=== PATIENT | female | born 1950 | race Caucasian/White ===

== ENCOUNTER 2018-03-24 21:26 | Inpatient (IN) | payer BC ==
[2018-03-24] MEDS ORDERED: KETOROLAC 30 MG/ML INJ ONE (23:12)
[2018-03-24 23:20] LABS: Absolute Lymphocytes (CBC) 2.1 K/uL (0.7-4.9); Absolute Neutrophil 10.4 K/uL (1.8-8.0); Basophils % 0.5 % (0-1.3); Hematocrit 38.4 % (36.0-45.0); Lymphocytes % 15.5 % (15.3-44.8); MCH 29.8 pg (27.0-35.0); MCV 88.2 fL (80-100); RBC Red Blood Cell Count 4.35 M/uL (3.86-4.86)
[2018-03-24 23:42] LABS: ALT/SGPT 29 U/L (12-78); AST/SGOT 22 U/L (15-37); Albumin 3.6 g/dL (3.4-5.0); Alkaline Phosphatase 100 U/L (45-117); BUN Blood Urea Nitrogen 16 mg/dL (7-18); Bicarbonate 26 mmol/L (21-32); Bilirubin Total 0.5 mg/dL (0.2-1.0); Glucose Level 163 mg/dL (74-106); Potassium 3.7 mmol/L (3.5-5.1); Protein, Total 6.9 g/dL (6.4-8.2); Sodium Level 140 mmol/L (136-145); Troponin (Emerg Dept Use Only) < 0.02 ng/mL (0.0-0.045)
[2018-03-25] MEDS ORDERED: MORPHINE 4 MG/ML SYR ONE (01:31)
[2018-03-25] MEDS ORDERED: ONDANSETRON 4 MG/2 ML VIAL ONE (01:33)
--- NOTE | 2018-03-25 03:25 | EDPHYS ---
Physician Documentation [facility] Name: Janay Boateng Age: 67 yrs Sex: Female : 1950 Arrival Date: 03/24/2018 Time: 21:27 Bed 30 Private MD: ED Physician Claudio Yun HPI: 03/25 00:10 This 67 yrs old Female presents to ER via Ambulatory with complaints of ps1 Shoulder Pain, Abdominal Pain. 00:10 patient fell and now has LUQ abdominal pain and left shoulder pain. Pain rated as ps1 moderate. Worse with movement. No LOC. Not on blood thinners. . Historical: - Allergies: 03/24 22:32 Codeine; rv - Home Meds: 22:32 losartan oral oral [Active]; rv - PMHx: 22:32 Asthma; COPD; Hypertension; rv - PSHx: 22:32 Hysterectomy; Knee surgery; Tonsillectomy; rv - Immunization history:: Adult Immunizations up to date, Flu vaccine is up to date. - Social history:: Smoking status: Patient/guardian denies using tobacco, never smoked. - Ebola Screening: : Patient negative for fever greater than or equal to 101.5 degrees Fahrenheit, and additional compatible Ebola Virus Disease symptoms Patient denies exposure to infectious person Patient denies travel to an Ebola-affected area in the 21 days before illness onset. ROS: 03/25 00:10 Constitutional: Negative for fever, chills, and weight loss, Eyes: Negative for injury, ps1 pain, redness, and discharge, Cardiovascular: Negative for chest pain, palpitations, and edema, Respiratory: Negative for shortness of breath, cough, wheezing, and pleuritic chest pain. Skin: Negative for injury, rash, and discoloration, Neuro: Negative for headache, weakness, numbness, tingling, and seizure. Abdomen/GI: Positive for abdominal pain, of the left upper quadrant. MS/extremity: Positive for pain, tenderness, of the anterior aspect of left upper chest. Exam: 00:17 Constitutional: This is a well developed, well nourished patient who is awake, alert, ps1 and in no acute distress. Head/Face: Normocephalic, atraumatic. Eyes: Pupils equal round and reactive to light, extra-ocular motions intact. Lids and lashes normal. Conjunctiva and sclera are non-icteric and not injected. Chest/axilla: Normal chest wall appearance and motion. Nontender with no deformity. No lesions are appreciated. Cardiovascular: Regular rate and rhythm. No gallops, murmurs, or rubs. Normal PMI, no JVD. No pulse deficits. Respiratory: Lungs have equal breath sounds bilaterally, clear to auscultation and percussion. No rales, rhonchi or wheezes noted. No increased work of breathing, no retractions or nasal flaring. 00:17 Skin: Warm, dry with normal turgor. Normal color with no rashes, no lesions, and no evidence of cellulitis. MS/ Extremity: Pulses equal, no cyanosis. Neurovascular intact. Full, normal range of motion. Neuro: Awake and alert, GCS 15, oriented to person, place, time, and situation. Cranial nerves II-XII grossly intact. Sensory grossly intact. 00:17 Abdomen/GI: Inspection: abdomen appears normal, Bowel sounds: normal, Palpation: mild abdominal tenderness, in the left upper quadrant. Vital Signs: 03/24 22:32 BP 115 / 36; Pulse 111; Resp 18; Temp 98.2(O); Pulse Ox 100% on R/A; Weight 101.6 kg rv (R); 03/25 01:39 BP 110 / 54; Pulse 93; Resp 19; Pulse Ox 96% on R/A; rv 02:30 BP 117 / 67; Pulse 97; Resp 17; Pulse Ox 98% on R/A; rv MDM: 03/24 22:53 Patient medically screened. ps1 03/25 00:18 Data reviewed: vital signs, nurses notes, lab test result(s), EKG, radiologic studies, ps1 CT scan, possible splenic laceration on CT thorax, will get CTAB with contrast for further evaluation. 03/24 22:50 Order name: CBC with Diff; Complete Time: 23:24 ps1 03/24 22:50 Order name: CMP; Complete Time: 23:50 ps1 03/24 22:50 Order name: Troponin (emerg Dept Use Only); Complete Time: 23:50 ps1 03/24 22:50 Order name: UA ps1 03/25 03:00 Order name: Hemoglobin EDMS 03/25 03:00 Order name: Hemoglobin EDMS 03/24 22:50 Order name: CT Chest Wo Con ps1 03/25 00:06 Order name: CT Abd/Pelvis - W/Contrast ps1 03/25 03:00 Order name: Hemoglobin EDMS 03/25 03:00 Order name: Hemoglobin EDMS 03/25 03:00 Order name: Hemoglobin EDMS 03/25 03:00 Order name: CONS Pharmacy Consult EDMS 03/25 03:00 Order name: NPO EDMS Administered Medications: 03/24 23:14 Drug: TORadol 30 mg Route: IVP; Site: right antecubital; rv 03/25 01:49 Follow up: Response: Pain is unchanged, physician notified rv 01:30 Drug: Zofran 4 mg Route: IVP; Site: right antecubital; rv 03:03 Follow up: Response: No adverse reaction rv 01:49 Drug: morphine 4 mg Route: IVP; Site: right antecubital; rv 03:03 Follow up: Response: Pain is decreased rv Disposition: 03/25/18 03:23 Hospitalization ordered by Adolfo Dillon for Inpatient Admission. Preliminary diagnosis are Subcapsular Hematoma, Splenic laceration, Abdominal pain. - Bed requested for Intensive Care Unit. - Status is Inpatient Admission. fc - Condition is Fair. - Problem is new. - Symptoms are unchanged. UTI on Admission? No Signatures: Dispatcher [employer] EDNE Jessica Watson RN RN Claudio Yun MD MD [facility] Les Diane RN RN rv Corrections: (The following items were deleted from the chart) 03:24 03:23 Hospitalization Ordered by Adolfo Dillon MD for Inpatient Admission. Preliminary fc diagnosis is Subcapsular Hematoma; Splenic laceration; Abdominal pain. Bed requested for Intensive Care Unit. Status is Inpatient Admission. Condition is Fair. Problem is new. Symptoms are unchanged. UTI on Admission? No. ps1 04:22 03:24 03/25/2018 03:23 Hospitalization Ordered by Adolfo Dillon MD for Inpatient fc Admission. Preliminary diagnosis is Subcapsular Hematoma; Splenic laceration; Abdominal pain. Bed requested for Intensive Care Unit. Status is Inpatient Admission. Condition is Fair. Problem is new. Symptoms are unchanged. UTI on Admission? No. fc
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
[2018-03-25 04:38] VITALS: BMI 36.6
[2018-03-25] MEDS: ONDANSETRON 4 MG/2 ML VIAL IV PRN ×2 (06:10→13:22)
[2018-03-25] MEDS: MORPHINE 4 MG/ML SYR IV PRN (06:11)
--- NOTE | 2018-03-25 07:21 | EKG ---
Test Date: 2018-03-24 Test Time: 22:47:02 Flowers Salesperson: MEASUREMENT RESULTS: Intervals: Rate: 91 DC: 152 QRSD: 72 QT: 398 QTc: 489 [place]: P: 74 DC: 152 QRS: 48 T: 63 INTERPRETIVE STATEMENTS: Sinus rhythm with frequent premature ventricular complexes Otherwise normal ECG Compared to ECG 03/27/2016 13:01:14 Ventricular premature complex(es) now present Electronically Signed On 03-25-18 07:20:34 PIGMENT FURNACE TENDER by Aj Olivera
[2018-03-25 07:56] LABS: Urine Appearance CLEAR; Urine Bilirubin NEGATIVE (NEG); Urine Blood NEGATIVE (NEG); Urine Color YELLOW; Urine Glucose NEGATIVE (NEG); Urine Protein NEGATIVE (NEG); Urine Specific Gravity >=1.030 (1.005-1.030); Urine Urobilinogen 0.2 mg/dL (0.2-1.0)
[2018-03-25 07:58] LABS: Urine Microscopic Reflex NO UMIC
--- NOTE | 2018-03-25 08:28 | RAD REPORT ---
EXAM DESCRIPTION: CT - Thorax Wo Con - 03/25/2018 4:38 am CLINICAL HISTORY: Fall, left-sided chest trauma A preliminary report was provided at the time of the study and reviewed prior to final report. COMPARISON: CT chest March 2016 TECHNIQUE: Axial 5 mm thick images of the chest were obtained without IV contrast. All CT scans are performed using dose optimization technique as appropriate and may include automated exposure control or mA/KV adjustment according to patient size. FINDINGS: No pulmonary contusion or acute lung parenchymal process. No pleural thickening or pleural effusion. No pneumothorax. No abnormal mediastinal or hilar masses or lymphadenopathy seen. No gross aortic or pulmonary artery finding suspected. Assessment is limited in the absence of IV contrast. No cardiomegaly or pericardi al effusion. No chest wall mass or abnormal axillary lymphadenopathy. Sternum is intact. No displaced rib fracture is identifiable. No significant contusion or edema change in the soft tissues. Partially imaged spleen is abnormal. There is heterogeneous attenuation suspicious for subcapsular he morrhage. No free fluid in the left upper quadrant. There is free fluid adjacent to the partially matilde ged liver. No gross evidence for laceration or capsule disruption of the liver. Abdomen is only parti ally imaged. IMPRESSION: Suspected subcapsular hemorrhage in the spleen. Follow-up contrast CT imaging would be h elpful. Small amount of fluid adjacent to the liver without gross evidence for liver injury. Again, contrast CT imaging would be helpful. No pulmonary contusion or acute lung parenchymal process. No displaced rib fracture or significant bony injury.
--- NOTE | 2018-03-25 08:28 | RAD REPORT ---
EXAM DESCRIPTION: CT - Abdomen Pelvis W Contrast - 03/25/2018 4:38 am CLINICAL HISTORY: Chest pain, abdominal pain, history of fall, history of abnormal spleen on CT ches t imaging A preliminary report was provided at the time of the study and reviewed prior to final report. COMPARISON: CT chest March 24 TECHNIQUE: Biphasic, helical CT imaging of the abdomen and pelvis was performed following 100 ml non -ionic IV contrast. No oral contrast All CT scans are performed using dose optimization technique as appropriate and may include automated exposure control or mA/KV adjustment according to patient size. FINDINGS: No suspicious findings in the lung bases. Liver size is normal. No liver laceration or capsular defect confirmed. Along the superior and right lateral margin of the liver there is fluid present within attenuation value of 30-40 Hounsfield units . No suspicious lesion within the liver parenchyma. Spleen is grossly abnormal. Small sub centimeter length lacerations are seen along the anterior super ior spleen. Circumferential subcapsular hemorrhages present up to 2.8 cm in thickness. Gallbladder, pancreas, adrenal glands and kidneys show no acute findings. Renal function is normal an d symmetric. Gallstones can be occult on CT imaging. No biliary tree dilatation. No dilated bowel loops or bowel wall thickening. No free air or pneumatosis. Minimal amount of fluid or blood is seen in the dependent portion of the pelvis. No hernia, mass or bulky lymphadenopathy. Uterus and ovaries show no suspicious findings. No adrenal abnormality. Disc and bony degenerative changes are present. No compression fracture. IMPRESSION: Grade 3 splenic injury with circumferential subcapsular hemorrhage up to 2.8 cm in thick ness. Small lacerations are seen anterior superior margin. Pericapsular or minimal subcapsular hemorrhage along the lateral and superior aspect of the liver. No liver laceration or capsule disruption identifiable. Small quantity of fluid/blood along the right pericolic gutter and dependent portion of the pelvis. No contrast extravasation seen to indicate active hemorrhage.
[2018-03-25] MEDS: ACETAMINOPHEN 500 MG TAB PO PRN ×2 (12:24→21:30)
[2018-03-26] MEDS: ONDANSETRON 4 MG/2 ML VIAL IV PRN (09:25)
[2018-03-26] MEDS: MORPHINE 4 MG/ML SYR IV PRN ×3 (09:42→22:26)
[2018-03-26] MEDS: ACETAMINOPHEN 500 MG TAB PO PRN (17:56)
[2018-03-26] MEDS ORDERED: MAGNESIUM HYDROXIDE 8% 30 ML PO ONE (19:35)
[2018-03-26] MEDS ORDERED: ZOLPIDEM TARTRATE 10 MG TABLET PO PRN ×2 (22:33→22:47)
[2018-03-27 06:35] LABS: Hematocrit 35.9 % (36.0-45.0)
[2018-03-27] MEDS: ONDANSETRON 4 MG/2 ML VIAL IV PRN ×2 (12:22→20:42)
[2018-03-27] MEDS: MORPHINE 4 MG/ML SYR IV PRN (12:22)
[2018-03-27] MEDS: ACETAMINOPHEN 500 MG TAB PO PRN (13:42)
[2018-03-27] MEDS: MORPHINE 2 MG/ML SYR IV PRN (20:42)
[2018-03-28] MEDS: TRAMADOL HCL 50 MG TAB PO PRN ×2 (04:52→21:17)
[2018-03-28 06:30] LABS: Absolute Lymphocytes (CBC) 1.1 K/uL (0.7-4.9); Absolute Monocytes 1.4 K/uL (0.1-1.3); Absolute Neutrophil 9.5 K/uL (1.8-8.0); Basophils % 0.6 % (0-1.3); Eosinophils % 1.2 % (0-4.4); Hematocrit 34.5 % (36.0-45.0); MCH 29.9 pg (27.0-35.0); MCV 89.5 fL (80-100); MPV 8.5 fL (7.6-11.3); Monocytes % 11.5 % (3.3-12.3); RBC Red Blood Cell Count 3.85 M/uL (3.86-4.86)
[2018-03-28 06:59] LABS: Albumin 2.7 g/dL (3.4-5.0); Bilirubin Direct 0.2 mg/dL (0-0.2); Bilirubin Total 0.5 mg/dL (0.2-1.0); Potassium 3.7 mmol/L (3.5-5.1); Protein, Total 6.4 g/dL (6.4-8.2)
[2018-03-28] MEDS: ONDANSETRON 4 MG/2 ML VIAL IV PRN ×2 (12:15→21:17)
[2018-03-28] MEDS: MORPHINE 2 MG/ML SYR IV PRN (12:16)
[2018-03-28] MEDS: ACETAMINOPHEN 500 MG TAB PO PRN (15:14)
[2018-03-29] MEDS: ACETAMINOPHEN 500 MG TAB PO PRN ×2 (10:28→20:54)
[2018-03-29] MEDS: TRAMADOL HCL 50 MG TAB PO PRN (10:28)
[2018-03-29] MEDS: ONDANSETRON 4 MG/2 ML VIAL IV PRN (12:38)
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
[2018-03-29] MEDS ORDERED: MAGNESIUM HYDROXIDE 8% 30 ML PO ONE (21:00)
[2018-03-30 04:46] VITALS: O2SAT 99
[2018-03-30] MEDS: ACETAMINOPHEN 500 MG TAB PO PRN (10:10)
[2018-03-30] MEDS: TRAMADOL HCL 50 MG TAB PO PRN (10:10)
[2018-03-30 12:57] VITALS: BP 143/78; TEMP 98.4
--- NOTE | 2018-03-30 13:18 | P.PN ---
Date of Service: 03/30/18 S: Patient has some lower abdominal soreness earlier when she tried to bend over. Appears to have gone away now. Up ambulating, tolerating a diet, has been afebrile. O: Abdomen remains soft, no guarding or rebound A: Surgically stable P: I will discharge the patient home today. We have discussed diet, continue use of incentive spirometry, and in fact that she has to walk and ambulate. She is at risk for clots in the legs, and we have discussed this in view of her aspirin use. She will see me on Thursday. She knows if anything changes or she has any questions or problems she is to return to the emergency room immediately.
--- NOTE | 2018-03-30 13:25 | P.DS ---
Admission Date: 03/25/18 Discharge Date: 03/30/18 Disposition: ROUTINE DISCHARGE Discharge Condition: GOOD Reason for Admission: Ruptured spleen Brief History of Present Illness: This 67-year-old female sustained a fall. She was at home when later on she started to eat. Experiencing fixed was at left upper quadrant abdominal pain, radiating into her left shoulder, and across the upper portion of her abdomen. She went to the emergency room for evaluation and treatment. Hospital Course: This patient was found have a ruptured spleen. She was stable with a stable H&H and vital signs. She was admitted for observation and pain control as well. Over the course of the next few days, her hemoglobin hematocrit remained stable. She was able to get up and ambulate. She was tolerating a diet. Her discomfort was controlled on oral medications and she was deemed fit for discharge. On discharge she has been advised to take stool softeners. Avoid any heavy lifting or bending. We will see her Thursday in my office. Should she have any questions or any problems she is to go or have herself brought to the emergency room. She understands. Vital Signs/Physical Exam: Temp Pulse Resp BP Pulse Ox 98.4 F 90 18 143/78 H 95 03/30/18 12:00 03/30/18 12:00 03/30/18 12:00 03/30/18 12:00 03/30/18 12:00 Laboratory Data at Discharge: WBC 12.2 K/uL (4.3-10.9) H 03/28/18 06:09 Hgb 11.5 g/dL (12.0-15.0) L 03/28/18 06:09 Hct 34.5 % (36.0-45.0) L 03/28/18 06:09 Plt Count 254 K/uL (152-406) 03/28/18 06:09 Sodium 136 mmol/L (136-145) 03/28/18 06:09 Potassium 3.7 mmol/L (3.5-5.1) 03/28/18 06:09 BUN 12 mg/dL (7-18) 03/28/18 06:09 Creatinine 0.90 mg/dL (0.55-1.3) 03/28/18 06:09 Glucose 113 mg/dL (74-106) H 03/28/18 06:09 Total Bilirubin 0.5 mg/dL (0.2-1.0) 03/28/18 06:09 AST 11 U/L (15-37) L 03/28/18 06:09 ALT 16 U/L (12-78) 03/28/18 06:09 Alkaline Phosphatase 83 U/L (45-117) 03/28/18 06:09 Home Medications: Albuterol Sulfate [Albuterol Sulfate 0.083% Neb Soln] 2.5 mg IH TID PRN Zolpidem Tartrate [Ambien Cr] 12.5 mg PO BEDTIME 03/28/16 Budesonide/Formoterol Fumarate [Symbicort 160-4.5 Mcg Inhaler] 2 puff IH BID #1 hfa.aer.ad 03/30/16 Pantoprazole [Protonix Tab*] 40 mg PO DAILYAC #30 tab 03/30/16 Tiotropium [place] [Spiriva Respimat] 4 gm IH DAILY #1 mist.inhal 03/30/16 Aspirin [Aspirin EC 81 MG] 1 tab PO DAILY 03/25/18 Cetirizine HCl [Zyrtec] 10 mg PO DAILY 03/25/18 Losartan/Hydrochlorothiazide [Losartan-Hctz 50-12.5 mg Tab] 1 each PO DAILY Montelukast Sodium 10 mg PO BEDTIME 03/25/18 Followup: Adolfo Dillon MD [ACTIVE - CAN ADMIT] - 04/05/18 (call to schedule appointment)
== END 2018-03-30 15:00 | disposition home or self-care (01) | DRG 816 ==
LOC: ER 21:26 → ERHOLD 03-25 02:55 → 3RD-ICU 03-25 03:26 → 4TH 03-25 18:00
PROVIDERS: ADMIT Surgery; ATTEND Surgery
DX: S36.09XA Other injury of spleen, initial encounter (principal); W10.1XXA Fall (on)(from) sidewalk curb, initial encounter; Y93.01 Activity, walking, marching and hiking; Y92.89 Other specified places as the place of occurrence of the external cause; J44.9 Chronic obstructive pulmonary disease, unspecified; I10 Essential (primary) hypertension
CPT/HCPCS: 36415; 71250; 74177; 80048; 80053; 80076; 81003; 84484; 85014; 85018; 85025; 93005; 96374; 96375; 99285; J2270; J2405; Q9967

== ENCOUNTER 2018-04-07 12:30 | Observation (INO) | payer BC ==
[2018-04-07] MEDS ORDERED: MEPERIDINE HCL 25 MG/0.5 ML ONE ×2 (13:41→16:03)
[2018-04-07] MEDS ORDERED: ONDANSETRON 4 MG/2 ML VIAL ONE (13:41)
[2018-04-07 13:54] LABS: Absolute Lymphocytes (CBC) 1.3 K/uL (0.7-4.9); Absolute Monocytes 1.1 K/uL (0.1-1.3); Absolute Neutrophil 9.3 K/uL (1.8-8.0); Basophils % 0.7 % (0-1.3); Eosinophils % 2.3 % (0-4.4); Hematocrit 39.7 % (36.0-45.0); Lymphocytes % 10.5 % (15.3-44.8); MCH 29.2 pg (27.0-35.0); MCV 87.5 fL (80-100); Monocytes % 9.4 % (3.3-12.3); RBC Red Blood Cell Count 4.54 M/uL (3.86-4.86)
[2018-04-07 13:58] LABS: Protime INR 1.27
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
[2018-04-07 14:09] LABS: Albumin 3.1 g/dL (3.4-5.0); Bilirubin Direct 0.1 mg/dL (0-0.2); Bilirubin Total 0.3 mg/dL (0.2-1.0); Potassium 3.7 mmol/L (3.5-5.1); Protein, Total 7.8 g/dL (6.4-8.2)
--- NOTE | 2018-04-07 14:39 | RAD REPORT ---
EXAM DESCRIPTION: CT - Chest Abdomen Pelvis W Cont - 04/07/2018 2:28 pm CLINICAL HISTORY: Chest and abdomen pain. ruptured spleen 3 weeks ago, worsening abd/chest pain COMPARISON: Abdomen Pelvis W Contrast dated 03/25/2018 TECHNIQUE: Approximately 100 mL nonionic IV contrast was administered to the patient. All CT scans are performed using dose optimization technique as appropriate and may include automated exposure control or mA/KV adjustment according to patient size. FINDINGS: Subsegmental atelectasis is present in the left lung base.A moderate left pleural effusion is noted.The right lung appears clear.No intrathoracic adenopathy.A rib fracture is not seen. Subcapsular fluid collections are seen surrounding the spleen laterally measuring 3.8 cm in thickness and medially measuring 1.6 cm in thickness. Most likely these represent liquefying hematoma related to previous splenic injury. Overall, size of the spleen with subcapsular fluid collections appears si milar to the prior study. Small amount of fluid which was about the right hepatic edge and in the pel vis has reduced in quantity. The liver, pancreas, adrenal glands and kidneys are within normal limits. No bowel obstruction, free air, or abscess. Normal appendix. No pathologic lymphadenopathy in the ab domen or pelvis. Lumbar degenerative changes are present. IMPRESSION: Moderate left pleural effusion. Subcapsular splenic fluid collections likely represent liquefying hematomas from prior splenic trauma . No acute process related to this finding is seen.
[2018-04-07 14:59] LABS: Urine White Blood Cell Casts OK
[2018-04-07 15:00] LABS: Blood Morphology Comment NOT SEEN (NOT SEEN); Hypochromasia 1+; Platelet Estimate INCR; Polychromasia 1+
--- NOTE | 2018-04-07 15:39 | EDPHYS ---
Physician Documentation [facility] Name: Janay Boateng Age: 67 yrs Sex: Female : 1950 Arrival Date: 04/07/2018 Time: 12:33 Bed 23 Private MD: Timmy Jean ED Physician Eric Trivedi HPI: 04/07 13:23 This 67 yrs old Female presents to ER via Wheelchair with complaints of rn Abdominal Pain. 13:23 The patient presents with abdominal pain in the left upper quadrant. Onset: The rn symptoms/episode began/occurred this morning. The symptoms do not radiate. Associated signs and symptoms: Pertinent negatives: nausea and vomiting, diarrhea, dysuria, fever, vomiting blood. Modifying factors: The symptoms are alleviated by nothing, the symptoms are aggravated by coughing, breathing deeply, movement, touching the area. Severity of pain: At its worst the pain was moderate in the emergency department the pain is unchanged. The patient has experienced similar episodes in the past. The patient has been recently seen by a physician: The patient has been recently been admitted at [facility]. Reports had splenic injury after fall 3 weeks ago, admitted to ICU here by Dr. Dillon, seen just yesterday at his clinic, was doing ok, this morning woke up with moderate LUQ abd pain and rib pain, no fever, no cough, + pain with movement/touch/deep breath. Historical: - Allergies: 13:01 Codeine; aa5 17:52 mushroom; tl3 - Home Meds: 17:52 losartan Oral [Active]; pantoprazole oral oral [Active]; cetirizine oral oral [Active]; tl3 Albuterol Inhl [Active]; budesonide inhalation inhalation [Active]; montelukast oral oral [Active]; Zolpidem Tartrate Oral [Active]; Hydralazine Oral [Active]; tiotropium bromide inhalation inhalation [Active]; Tramadol Oral [Active]; benzonatate oral oral [Active]; - PMHx: 13:01 Asthma; COPD; Hypertension; aa5 - PSHx: 13:01 Hysterectomy; Knee surgery; Tonsillectomy; aa5 - Immunization history:: Adult Immunizations unknown. - Social history:: Smoking status: Patient/guardian denies using tobacco. - Ebola Screening: : No symptoms or risks identified at this time. - Family history:: not pertinent. - Hospitalizations: : The patient was recently seen at [facility]. ROS: 13:23 Constitutional: Negative for fever, chills, and weight loss, Eyes: Negative for injury, rn pain, redness, and discharge, Cardiovascular: Negative for palpitations, and edema, Respiratory: Negative for cough, wheezing Abdomen/GI: + abd pain Back: Negative for injury and pain, MS/Extremity: Negative for injury and deformity, Skin: Negative for injury, rash, and discoloration, Neuro: Negative for headache, weakness, numbness, tingling, and seizure. Exam: 13:23 Constitutional: This is a well developed, well nourished patient who is awake, alert, rn appears uncomfortable Head/Face: Normocephalic, atraumatic. Eyes: Pupils equal round and reactive to light, extra-ocular motions intact. Cardiovascular: Regular rate and rhythm with a normal S1 and S2. No pulse deficits. Respiratory: Diminished breath sounds left lung base, no crepitus, no ecchymosis Abdomen/GI: soft, + tender LUQ without ecchymosis MS/ Extremity: Pulses equal, no cyanosis. Neurovascular intact. Full, normal range of motion. Equal circumference. Neuro: Awake and alert, GCS 15, oriented to person, place, time, and situation. Cranial nerves II-XII grossly intact. Motor strength 5/5 in all extremities. Sensory grossly intact. Vital Signs: 13:01 BP 131 / 78; Pulse 89; Resp 16 S; Temp 98.3(TE); Pulse Ox 98% on R/A; Weight 102.06 kg aa5 (R); Height 5 ft. 5 in. (165.10 cm) (R); Pain 10/10; 14:15 BP 124 / 88; Pulse 90; Resp 18; Pulse Ox 97% ; tl3 15:58 BP 128 / 83; Pulse 89; Resp 18; Pulse Ox 99% ; tl3 13:01 Body Mass Index 37.44 (102.06 kg, 165.10 cm) aa5 MDM: 13:06 Patient medically screened. rn 15:18 Differential diagnosis: bowel obstruction, non-specific abd pain, pneumonia, pleurisy, rn atelectasis, pleural effusion. Data reviewed: vital signs, nurses notes, lab test result(s), radiologic studies, CT scan, plain films, and as a result, I will admit patient. Counseling: I had a detailed discussion with the patient and/or guardian regarding: the historical points, exam findings, and any diagnostic results supporting the discharge/admit diagnosis, lab results, radiology results, the need for further work-up and treatment in the hospital. Admission orders: after a detailed discussion of the patient's condition and case, the admit orders are written by me. ED course: Pt evaluated by Dr. Dillon here in ER< recommends admission to medicine with consult to him, improvement of splenic injury, but new pleural effusion. . 04/07 13:18 Order name: Basic Metabolic Panel; Complete Time: 14:39 rn 04/07 13:18 Order name: CBC with Diff; Complete Time: 15:21 rn 04/07 13:18 Order name: Creatinine for Radiology; Complete Time: 14:13 rn 04/07 13:18 Order name: Hepatic Function; Complete Time: 14:39 rn 04/07 13:18 Order name: Lipase; Complete Time: 14:39 rn 04/07 13:18 Order name: Type And Screen; Complete Time: 15:21 rn 04/07 13:18 Order name: CT Chest, Abdomen, Pelvis - W/Contrast; Complete Time: 14:43 rn 04/07 13:18 Order name: XRAY Chest (1 view); Complete Time: 14:13 rn 12 13:19 Order name: PT-INR; Complete Time: 14:39 rn 04/07 13:19 Order name: Ptt, Activated; Complete Time: 14:39 rn 04/07 14:26 Order name: CBC Smear Scan; Complete Time: 15:21 EDWA 04/07 15:10 Order name: ABO/RH no charge; Complete Time: 15:21 EDWA 04/07 13:18 Order name: IV Saline Lock; Complete Time: 13:26 rn 04/07 13:18 Order name: Labs collected and sent; Complete Time: 13:26 rn 04/07 13:19 Order name: EKG; Complete Time: 13:19 rn 04/07 13:19 Order name: EKG - Nurse/Tech; Complete Time: 13:37 rn Administered Medications: 13:37 Drug: Zofran 4 mg Route: IVP; Infused Over: 2 mins; Site: right antecubital; tl3 14:35 Follow up: Response: No adverse reaction tl3 13:37 Drug: Demerol 25 mg Route: IVP; Infused Over: 2 mins; Site: right antecubital; tl3 14:35 Follow up: Response: No adverse reaction; Marked relief of symptoms; Pain is decreased tl3 15:58 Drug: Demerol 25 mg Route: IVP; Infused Over: 2 mins; Site: right antecubital; tl3 17:56 Follow up: Response: No adverse reaction tl3 Disposition: 04/07/18 15:38 Hospitalization ordered by Jaren Shields for Observation. Preliminary diagnosis are Pleural effusion, not elsewhere classified, Splenic Hematoma. - Bed requested for Telemetry/MedSurg (observation). - Status is Observation. tl3 - Condition is Stable. - Problem is new. - Symptoms have improved. UTI on Admission? No Signatures: Dispatcher [employer] EDMS Eric Trivedi MD MD rn Calderon, Audri, RN RN aa5 Yosvany Chaparro PA PA 8 Barb Godfrey RN RN df Maria Luz Apodaca RN RN tl3 Corrections: (The following items were deleted from the chart) 16:25 15:38 Hospitalization Ordered by Jaren Shields DO for Inpatient Admission. Preliminary rn diagnosis is Pleural effusion, not elsewhere classified; Splenic Hematoma. Bed requested for Telemetry/MedSurg (Inpatient). Status is Inpatient Admission. Condition is Stable. Problem is new. Symptoms have improved. UTI on Admission? No. rn 16:38 16:25 04/07/2018 15:38 Hospitalization Ordered by Jaren Shields DO for Observation. df Preliminary diagnosis is Pleural effusion, not elsewhere classified; Splenic Hematoma. Bed requested for Telemetry/MedSurg (observation). Status is Observation. Condition is Stable. Problem is new. Symptoms have improved. UTI on Admission? No. rn 18:47 16:38 04/07/2018 15:38 Hospitalization Ordered by Jaren Shields DO for Observation. tl3 Preliminary diagnosis is Pleural effusion, not elsewhere classified; Splenic Hematoma. Bed requested for Telemetry/MedSurg (observation). Status is Observation. Condition is Stable. Problem is new. Symptoms have improved. UTI on Admission? No. df
--- NOTE | 2018-04-07 15:39 | ER ---
Nurse's Notes [facility] Name: Janay Boateng Age: 67 yrs Sex: Female : 1950 Arrival Date: 04/07/2018 Time: 12:33 Bed 23 Private MD: Timmy Jean Diagnosis: Pleural effusion, not elsewhere classified;Splenic Hematoma Presentation: 04/07 12:59 Presenting complaint: Patient states: "I fell and ruptured my spleen and had some liver aa5 issues as well and since yesterday the abdominal pain has gotten worse and Dr. West recommended for me to come in and be reevaluated". Pt denies vomiting. Transition of care: patient was not received from another setting of care. Onset of symptoms was March 2018. Risk Assessment: Do you want to hurt yourself or someone else? Patient reports no desire to harm self or others. Initial Sepsis Screen: Does the patient meet any 2 criteria? No. Patient's initial sepsis screen is negative. Does the patient have a suspected source of infection? No. Patient's initial sepsis screen is negative. Care prior to arrival: None. 12:59 Method Of Arrival: Wheelchair aa5 12:59 Acuity: JAYESH 3 aa5 Historical: - Allergies: 13:01 Codeine; aa5 17:52 mushroom; tl3 - Home Meds: 17:52 losartan Oral [Active]; pantoprazole oral oral [Active]; cetirizine oral oral [Active]; tl3 Albuterol Inhl [Active]; budesonide inhalation inhalation [Active]; montelukast oral oral [Active]; Zolpidem Tartrate Oral [Active]; Hydralazine Oral [Active]; tiotropium bromide inhalation inhalation [Active]; Tramadol Oral [Active]; benzonatate oral oral [Active]; - PMHx: 13:01 Asthma; COPD; Hypertension; aa5 - PSHx: 13:01 Hysterectomy; Knee surgery; Tonsillectomy; aa5 - Immunization history:: Adult Immunizations unknown. - Social history:: Smoking status: Patient/guardian denies using tobacco. - Ebola Screening: : No symptoms or risks identified at this time. - Family history:: not pertinent. - Hospitalizations: : The patient was recently seen at [facility]. Screenin:10 Abuse screen: Denies threats or abuse. Nutritional screening: No deficits noted. tl3 Tuberculosis screening: No symptoms or risk factors identified. Fall Risk None identified. Assessment: 13:10 General: Appears uncomfortable, well groomed, well developed, well nourished, Behavior tl3 is calm, cooperative, appropriate for age. Pain: Complains of pain in left upper quadrant Pain currently is 10 out of 10 on a pain scale. Pain began started yesterday, had recent splenic injury 3 weeks ago from fall, was in ICU for 2 days. Neuro: Level of Consciousness is awake, alert, obeys commands, Oriented to person, place, time, situation, Appropriate for age. Cardiovascular: Heart tones S1 S2 present Patient's skin is warm and dry. Respiratory: Airway is patent Respiratory effort is even, unlabored, Respiratory pattern is regular, symmetrical, Breath sounds are clear bilaterally. GI: Bowel sounds present X 4 quads. Abd is soft Abdomen is tender to palpation in left upper quadrant. : No deficits noted. No signs and/or symptoms were reported regarding the genitourinary system. EENT: No deficits noted. No signs and/or symptoms were reported regarding the EENT system. Derm: No deficits noted. No signs and/or symptoms reported regarding the dermatologic system. Musculoskeletal: No deficits noted. No signs and/or symptoms reported regarding the musculoskeletal system. 14:15 Reassessment: pt states that she is feeling a bit better after pain meds. tl3 14:15 Reassessment: pt returned from CT. tl3 15:58 Reassessment: No changes from previously documented assessment. Patient and/or family tl3 updated on plan of care and expected duration. Pain level reassessed. Patient is alert, oriented x 3, equal unlabored respirations, skin warm/dry/pink. hospitalist at bedside discussing plan to admit. Vital Signs: 13:01 BP 131 / 78; Pulse 89; Resp 16 S; Temp 98.3(TE); Pulse Ox 98% on R/A; Weight 102.06 kg aa5 (R); Height 5 ft. 5 in. (165.10 cm) (R); Pain 10/10; 14:15 BP 124 / 88; Pulse 90; Resp 18; Pulse Ox 97% ; tl3 15:58 BP 128 / 83; Pulse 89; Resp 18; Pulse Ox 99% ; tl3 13:01 Body Mass Index 37.44 (102.06 kg, 165.10 cm) aa5 ED Course: 12:33 Patient arrived in ED. mr 12:33 Timmy Jean MD is Private Physician. mr 12:59 Arm band placed on. aa5 13:00 Triage completed. aa5 13:06 Eric Trivedi MD is Attending Physician. rn 13:10 Maria Luz Apodaca, GABE is Primary Nurse. tl3 13:10 ED physician to see patient. Dr Trivedi. tl3 13:10 Patient has correct armband on for positive identification. Bed in low position. Call tl3 light in reach. Side rails up X 1. Adult w/ patient. playground monitor on. Pulse ox on. Warm blanket given. 13:10 No provider procedures requiring assistance completed. tl3 13:26 Initial lab(s) drawn, by me, sent to lab. X-ray(s) taken. Inserted saline lock: 20 tl3 gauge in right antecubital area, using aseptic technique. Blood collected. 13:30 Radiology exam delayed due to lab results not completed at this time. (BUN/Creatinine). vr 13:43 XRAY Chest (1 view) In Process Unspecified. EDMS 13:43 X-ray completed. Portable x-ray completed in exam room. Patient tolerated procedure ml well. 13:57 EKG done, by development technician. reviewed by Eric Trivedi MD. at1 14:28 CT Chest, Abdomen, Pelvis - W/Contrast In Process Unspecified. EDMS 15:36 Jaren Shields DO is Hospitalizing Provider. rn 17:52 Patient admitted, IV remains in place. tl3 Administered Medications: 13:37 Drug: Zofran 4 mg Route: IVP; Infused Over: 2 mins; Site: right antecubital; tl3 14:35 Follow up: Response: No adverse reaction tl3 13:37 Drug: Demerol 25 mg Route: IVP; Infused Over: 2 mins; Site: right antecubital; tl3 14:35 Follow up: Response: No adverse reaction; Marked relief of symptoms; Pain is decreased tl3 15:58 Drug: Demerol 25 mg Route: IVP; Infused Over: 2 mins; Site: right antecubital; tl3 17:56 Follow up: Response: No adverse reaction tl3 Outcome: 15:38 Decision to Hospitalize by Provider. rn 17:44 Admitted to Med/surg accompanied by tech, via wheelchair, with chart, Report called to tl3 GABE Saenz 17:44 Condition: stable 17:44 Instructed on the need for admit. 18:47 Patient left the ED. tl3 Signatures: [facility] Ciaran, Melissa Gleason, KimmyEric Cochran MD MD rn Calderon, Ellyn, RN RN Evelyn Mann Amanda, employee development manager EKG Tat1 Maria Luz Apodaca RN RN tl3 Corrections: (The following items were deleted from the chart) 13:14 13:10 ED physician to see patient. tl3 tl3 17:53 17:44 Admitted to Med/surg accompanied by tech, via wheelchair, with chart, tl3 tl3
--- NOTE | 2018-04-07 16:20 | P.HP ---
Certification for Inpatient Patient admitted to: Observation With expected LOS: <2 Midnights Patient will require the following post-hospital care: None Practitioner: I am a practitioner with admitting privileges, knowledge of patient current condition, hospital course, and medical plan of care. Services: Services provided to patient in accordance with Admission requirements found in Title 42 Section 412.3 of the Code of Federal Regulations Patient History Date of Service: 04/07/18 Primary Care Provider: Dr. Jean; Pulmonary-Dr. Serrato Reason for admission: Shortness of breath, left-sided pain History of Present Illness: 67-year-old female presented to the emergency room with shortness of breath and left-sided pain. Patient was recently hospitalized for fall that led to a splenic fracture. The patient was observed by surgery on 03/29 through 03/30. Patient was discharged on 03/30. Patient recently had a follow up with surgery. Patient had been doing well. Patient has been using incentive spirometer. Patient has been using mild pain medication. Over the last 2 days the patient had noted left-sided pain with increasing shortness of breath. Patient's mobility has been decreased than normal. Patient with history of hypertension, COPD and GERD. In ER, patient evaluated. Vital signs stable. White count 12.1, hemoglobin 13.2. Sodium 138, potassium 3.7. BUN of 13, crit 1.1 with a GFR 50. Chest x- ray showed moderate left-sided pleural effusion. CT scan showed pleural effusion with atelectasis. Liquefying hematoma of the spleen also identified. Patient was admitted for observation. When I saw the patient ER, pain seemed to be better controlled. Patient overall stable. Patient not requiring any oxygen. Patient uses albuterol as needed for COPD. Allergies codeine Allergy (Verified 03/25/18 04:36) Rash mushroom Allergy (Verified 03/25/18 04:36) Anaphylaxis Home medications list reviewed: Yes Home Medications: Albuterol Sulfate [Albuterol Sulfate 0.083% Neb Soln] 2.5 mg IH TID PRN Zolpidem Tartrate [Ambien Cr] 12.5 mg PO BEDTIME 03/28/16 Budesonide/Formoterol Fumarate [Symbicort 160-4.5 Mcg Inhaler] 2 puff IH BID #1 hfa.aer.ad 03/30/16 Pantoprazole [Protonix Tab*] 40 mg PO DAILYAC #30 tab 03/30/16 Tiotropium [place] [Spiriva Respimat] 4 gm IH DAILY #1 mist.inhal 03/30/16 Aspirin [Aspirin EC 81 MG] 1 tab PO DAILY 03/25/18 Cetirizine HCl [Zyrtec] 10 mg PO DAILY 03/25/18 Losartan/Hydrochlorothiazide [Losartan-Hctz 50-12.5 mg Tab] 1 each PO DAILY Montelukast Sodium 10 mg PO BEDTIME 03/25/18 Tramadol HCl [Ultram] 50 mg PO Q6H PRN #30 tablet 03/30/18 - Past Medical/Surgical History Diabetic: No -: COPD -: Hypertension -: Obesity -: GERD -: Insomnia -: Recent splenic fracture -: Knee surgery -: Tonsillectomy -: Psychosocial/ Personal History: She is of 36 years, has 1 child, she works as a claims customer service representative. - Family History Mother -: Hypertension, Lung disease, Diabetes Sister -: Hypertension, Diabetes Father -: Heart disease - Social History Smoking Status: Never smoker Alcohol use: No CD- Drugs: No Caffeine use: Yes Place of Residence: Home Review of Systems General: Weakness, As per HPI Eyes: Unremarkable ENT: Unremarkable Respiratory: Shortness of Breath Cardiovascular: Unremarkable Gastrointestinal: Unremarkable Genitourinary: Unremarkable Musculoskeletal: Unremarkable Integumentary: Unremarkable Neurological: Unremarkable Lymphatics: Unremarkable Physical Examination - Physical Exam General: Alert, In no apparent distress, Oriented x3, Cooperative HEENT: Atraumatic, Normocephalic, PERRLA, Mucous membr. moist/pink Neck: Supple Respiratory: Diminished (To the left side) Cardiovascular: Normal pulses, Regular rate/rhythm Gastrointestinal: Normal bowel sounds, Soft and benign, Non-distended, No masses , No rebound, No guarding, Tenderness (Mental pain to the left side) Musculoskeletal: No erythema, No tenderness, No warmth Integumentary: No tenderness/swelling, No erythema, No warmth, No cyanosis Neurological: Normal speech, Normal strength at 5/5 x4 extr, Normal tone, Normal affect - Studies Laboratory Data (last 24 hrs) 04/07/18 13:26: PT 15.0 H, INR 1.27, APTT 39.2 H 12/12/18 13:26: Creatinine 1.10 18 13:26: WBC 12.1 H, Hgb 13.2, Hct 39.7 D, Plt Count 591 H D 04/07/18 13:26: Sodium 138, Potassium 3.7, BUN 13, Creatinine 1.10, Glucose 120 H, Total Bilirubin 0.3, AST 16, ALT 20, Alkaline Phosphatase 122 H, Lipase 65 L Assessment and Plan - Plan Impression: Shortness of breath with noted left moderate pleural effusion with atelectasis Recent fall with splenic fracture now a liquefying hematoma COPD Hypertension GERD Insomnia Obesity Plan: Shortness of breath with noted left moderate pleural effusion with atelectasis: Patient will be admitted for observation. Will encourage incentive spirometer. Will maintain sats above 90%. Will provide medication for COPD. Will consult pulmonology to further evaluate and assess. Will repeat chest x- ray in the morning. Will discuss further with pulmonology and surgery. Will have physical therapy assess ambulation tomorrow. Recent fall with splenic fracture now a liquefying hematoma: Overall CT scan shows improvement. Will continue to monitor pain control. Will provide medication for pain. Will discuss with surgery tomorrow. Physical therapy to assess ambulation and provide education with home needs. COPD: Start Brovana. Will provide medication for shortness of breath. Encourage incentive spirometer. Pulmonology consulted to further evaluate. Hypertension: Will restart home medication. GERD: Will provide PPI. Insomnia: Will continue with medication Obesity: Will provide lifestyle modification education. Will check BMI. Discharge Plan: Home Plan to discharge in: 24 Hours - Advance Directives Does patient have a Living Will: No Does patient have a Durable POA for Healthcare: No - Code Status/Comfort Care Code Status Assessed: Yes (Patient full code.) Time Spent Managing Pts Care (In Minutes): 55
[2018-04-07] MEDS ORDERED: ZOLPIDEM TARTRATE 5 MG TABLET PO PRN (18:34)
[2018-04-07] MEDS ORDERED: HYDROCODONE/APAP 7.5/325 MG TAB PO PRN (18:34)
[2018-04-07] MEDS ORDERED: ACETAMINOPHEN 500 MG TAB PO PRN (18:34)
[2018-04-07] MEDS ORDERED: ONDANSETRON 4 MG/2 ML VIAL IV PRN (18:34)
[2018-04-07] MEDS ORDERED: TRAMADOL HCL 50 MG TAB PO PRN (18:34)
[2018-04-07] MEDS ORDERED: ALBUTEROL 2.5 MG/3 ML NEB SOL NEB PRN (18:34)
[2018-04-07] MEDS ORDERED: IPRATROPIUM BROM 0.5MG/2.5ML NEB PRN (18:34)
[2018-04-07 19:34] LABS: Urine Appearance CLEAR; Urine Bilirubin NEGATIVE (NEG); Urine Blood NEGATIVE (NEG); Urine Color YELLOW; Urine Glucose NEGATIVE (NEG); Urine Protein NEGATIVE (NEG); Urine Specific Gravity >=1.030 (1.005-1.030); Urine Urobilinogen 0.2 mg/dL (0.2-1.0)
[2018-04-07 19:43] VITALS: BMI 35.1
[2018-04-07 19:47] LABS: Urine Microscopic Reflex NO UMIC
[2018-04-07] MEDS: ARFORMOTEROL TARTRATE 15 MCG/2 ML VIAL.NEB NEB SCH (21:30)
--- NOTE | 2018-04-08 05:17 | EKG ---
Test Date: 2018-04-07 Test Time: 13:42:27 Inspector Toys: LUCY MEASUREMENT RESULTS: Intervals: Rate: 82 CT: 158 QRSD: 78 QT: 392 QTc: 457 [place]: P: 67 CT: 158 QRS: 39 T: 56 INTERPRETIVE STATEMENTS: Normal sinus rhythm Normal ECG Compared to ECG 03/24/2018 22:47:02 Ventricular premature complex(es) no longer present Electronically Signed On 04-08-18 05:16:42 SALES ORDER SPECIALIST by Aj Olivera
[2018-04-08 06:21] LABS: Absolute Lymphocytes (CBC) 1.3 K/uL (0.7-4.9); Absolute Monocytes 0.9 K/uL (0.1-1.3); Absolute Neutrophil 8.3 K/uL (1.8-8.0); Basophils % 0.5 % (0-1.3); Eosinophils % 2.5 % (0-4.4); Hematocrit 36.5 % (36.0-45.0); Lymphocytes % 12.1 % (15.3-44.8); MCH 29.9 pg (27.0-35.0); MCV 87.3 fL (80-100); MPV 7.9 fL (7.6-11.3); Monocytes % 8.7 % (3.3-12.3); RBC Red Blood Cell Count 4.18 M/uL (3.86-4.86)
[2018-04-08 06:33] LABS: Magnesium 2.6 mg/dL (1.8-2.4); Potassium 4.1 mmol/L (3.5-5.1)
[2018-04-08] MEDS: ARFORMOTEROL TARTRATE 15 MCG/2 ML VIAL.NEB NEB SCH (07:23)
[2018-04-08] MEDS ORDERED: PANTOPRAZOLE 40MG TABLET PO SCH (07:30)
[2018-04-08] MEDS ORDERED: LOSARTAN POTASSIUM 50 MG TABLET PO SCH (09:00)
--- NOTE | 2018-04-08 09:07 | RAD REPORT ---
EXAM DESCRIPTION: RAD - Chest Pa And Lat (2 Views) - 04/08/2018 6:55 am CLINICAL HISTORY: Follow up pleural effusion Chest pain. COMPARISON: Chest Single View dated 04/07/2018; Chest Single View dated 03/28/2016; Chest Single View dated 03/27/2016; CHEST PA AND LAT 2 VIEW dated 07/09/2011; Chest Abdomen Pelvis W Cont dated 04/07/20 18 FINDINGS: Moderate left pleural effusion is again noted, unchanged. The right lung appears clear. Th e heart is mildly prominent. No displaced fractures. IMPRESSION: Moderate left pleural effusion, stable.
[2018-04-08 11:23] VITALS: O2SAT 98
--- NOTE | 2018-04-08 11:31 | P.CNS ---
Date of Consult: 04/08/18 Primary Care Provider: Dr. Jean; Pulmonary-Dr. Serrato Chief Complaint: Left-sided pleural effusion History of Present Illness: Patient is 67 years of age was recently admitted for a traumatic subcapsular splenic hematoma and was discharged and started complaining of left-sided pain in her chest started on prior to that she had fallen that precipitated all this pain she describes as pleuritic denies any fever or chills patient developed a new left-sided pleural effusion Allergies codeine Allergy (Verified 03/25/18 04:36) Rash mushroom Allergy (Verified 03/25/18 04:36) Anaphylaxis Home Medications: Albuterol Sulfate [Albuterol Sulfate 0.083% Neb Soln] 2.5 mg IH PRN PRN Zolpidem Tartrate [Ambien Cr] 12.5 mg PO BEDTIME 03/28/16 Pantoprazole [Protonix Tab*] 40 mg PO DAILYAC #30 tab 03/30/16 Aspirin [Aspirin EC 81 MG] 1 tab PO DAILY 03/25/18 Cetirizine HCl [Zyrtec] 10 mg PO DAILY 03/25/18 Losartan/Hydrochlorothiazide [Losartan-Hctz 50-12.5 mg Tab] 1 each PO DAILY Montelukast Sodium 10 mg PO BEDTIME 03/25/18 Tramadol HCl [Ultram] 50 mg PO Q6H PRN #30 tablet 03/30/18 Budesonide/Formoterol Fumarate [Symbicort 160-4.5 Mcg Inhaler] 2 puff IH PRN PRN 04/07/18 Tiotropium [place] [Spiriva Respimat] 4 gm IH PRN PRN 04/07/18 - Past Medical/Surgical History Diabetic: No -: COPD -: Hypertension -: Obesity -: GERD -: Insomnia -: Recent splenic fracture -: Knee surgery -: Tonsillectomy -: Psychosocial/ Personal History: She is of 36 years, has 1 child, she works as a customer experience analyst. - Family History Mother Medical History: Hypertension, Lung disease, Diabetes Sister Medical History: Hypertension, Diabetes Father Medical History: Heart disease - Social History Smoking Status: Never smoker Alcohol use: No CD- Drugs: No Caffeine use: Yes Place of Residence: Home Review of Systems General: Weakness Respiratory: Shortness of Breath Cardiovascular: Chest Pain Physical Examination Temp Pulse Resp BP Pulse Ox 97.0 F 106 H 20 124/66 98 04/08/18 08:00 04/08/18 08:00 04/08/18 08:00 04/08/18 08:00 04/08/18 08:00 General: Alert, Oriented x3, Moderate distress HEENT: Atraumatic Neck: Supple Respiratory: Diminished (Diminished air entry on the left side) Cardiovascular: No edema, Regular rate/rhythm Laboratory Data (last 24 hrs) 04/07/18 13:26: PT 15.0 H, INR 1.27, APTT 39.2 H 04/07/18 13:26: Creatinine 1.10 04/07/18 13:26: WBC 12.1 H, Hgb 13.2, Hct 39.7 D, Plt Count 591 H D 04/07/18 13:26: Sodium 138, Potassium 3.7, BUN 13, Creatinine 1.10, Glucose 120 H, Total Bilirubin 0.3, AST 16, ALT 20, Alkaline Phosphatase 122 H, Lipase 65 L - Problems (1) Pleural effusion Current Visit: Yes Status: Acute Plan: Patient is 67 years of age admitted with pleural effusion on the left side. She was recently diagnosed with a subcapsular hematoma of the spleen admitted with some pain on the left side chemistries unremarkable normal white count no evidence of sepsis final signs are stable oxygenation is satisfactory no surgical intervention is indicated as for the subcapsular hematoma she probably has underlying reactive pleural effusion hemoglobin is relatively stable I suggest discharge patient on some pain medications example Ultram paracenteses is not indicated at the present moment I doubt if this is infection follow up with me in 2 weeks the pre clinic chest x-ray
--- NOTE | 2018-04-08 11:55 | P.DS ---
Admission Date: 04/07/18 Discharge Date: 04/08/18 Primary Care Provider: Dr. Jean; Pulmonary-Dr. Serrato Disposition: ROUTINE DISCHARGE Discharge Condition: GOOD Reason for Admission: Left-sided pleural effusion Consultations: Pulmonary-Dr. Serrato Surgery-Dr. Dillon Procedures: CT scan: Moderate left pleural effusion. Subcapsular splenic fluid collection likely representing liquefying hematoma from prior splenic trauma. No acute process noted. CXR: Stable left moderate pleural effusion Impression: Shortness of breath secondary to left moderate pleural effusion with atelectasis Subcapsular splenic fluid collection likely liquefying hematoma with history of prior splenic fracture COPD Hypertension GERD Insomnia Allergic rhinitis Obesity, BMI 35 Brief History of Present Illness: 67-year-old female presented to the emergency room with shortness of breath and left-sided pain. Patient was recently hospitalized for fall that led to a splenic fracture. The patient was observed by surgery on 03/29 through 03/30. Patient was discharged on 03/30. Patient recently had a follow up with surgery. Patient had been doing well. Patient has been using incentive spirometer. Patient has been using mild pain medication. Over the last 2 days the patient had noted left-sided pain with increasing shortness of breath. Patient's mobility has been decreased than normal. Patient with history of hypertension, COPD and GERD. In ER, patient evaluated. Vital signs stable. White count 12.1, hemoglobin 13.2. Sodium 138, potassium 3.7. BUN of 13, crit 1.1 with a GFR 50. Chest x- ray showed moderate left-sided pleural effusion. CT scan showed pleural effusion with atelectasis. Liquefying hematoma of the spleen also identified. Patient was admitted for observation. When I saw the patient ER, pain seemed to be better controlled. Patient overall stable. Patient not requiring any oxygen. Patient uses albuterol as needed for COPD. Hospital Course: Patient presented with shortness of breath. Patient found to have left moderate pleural effusion with atelectasis. Patient recently hospitalized for splenic fracture due to fall. CT scan revealed fluid collection around spleen likely liquefying hematoma. CT scan revealed stability. Patient evaluated by surgery and pulmonology. Pulmonology recommends no intervention. No need for further surgical intervention as well. Recommendation is to continue with incentive spirometer at discharge. Pain control is required. Patient may continue with tramadol 50 mg 1 pill 3 times a day as needed for pain. Recommendation to recheck chest x-ray in 2-4 weeks to monitor resolution. Recommendation to follow up with surgery next Thursday to follow up this hospitalization. Recommendation to follow up with pulmonology in 2-4 weeks to monitor her progress. Patient will need to limit activities. No heavy physical activities. Patient with COPD. Patient has not been using her medication regularly. At discharge she will continue with Symbicort 2 puffs twice daily. Will discontinue Spiriva since she is not using this on a regular basis. Patient may continue with Pro air 2 puffs 3 times a day as needed for shortness of breath. Patient may follow up with pulmonology to further address. Patient with hypertension. Patient will continue with her medication-losartan/ hydrochlorothiazide 50/12.5 mg daily. Patient may also continue with aspirin 81 mg daily. Recommendation is to maintain blood pressures less 150/80. Further adjustment can be done by her PCP. Patient with GERD. Patient continue with her medication-Protonix 40 mg daily. Patient with insomnia. Patient will continue with her medication-Ambien CR 12.5 mg at night as needed. Patient with allergic rhinitis. Patient will continue with Zyrtec 10 mg daily and Singulair 10 mg daily. Patient with obesity. BMI 35. Lifestyle modification education provided. Vital Signs/Physical Exam: Temp Pulse Resp BP Pulse Ox 97.0 F 106 H 20 124/66 98 04/08/18 08:00 04/08/18 08:00 04/08/18 08:00 04/08/18 08:00 04/08/18 08:00 General: Alert, In no apparent distress, Oriented x3, Cooperative HEENT: Atraumatic Neck: Supple Respiratory: Diminished (Slightly diminished to the left side. Good air movement to the right side.) Cardiovascular: Normal pulses Gastrointestinal: Normal bowel sounds, Soft and benign, Non-distended, No tenderness, No masses, No rebound, No guarding Musculoskeletal: No erythema, No tenderness, No warmth Integumentary: No tenderness/swelling, No erythema, No warmth, No cyanosis Neurological: Normal speech, Normal strength at 5/5 x4 extr, Normal tone, Normal affect Laboratory Data at Discharge: WBC 10.9 K/uL (4.3-10.9) 04/08/18 05:41 Hgb 12.5 g/dL (12.0-15.0) 04/08/18 05:41 Hct 36.5 % (36.0-45.0) 04/08/18 05:41 Plt Count 531 K/uL (152-406) H 04/08/18 05:41 PT 15.0 SECONDS (9.5-12.5) H 04/07/18 13:26 INR 1.27 04/07/18 13:26 APTT 39.2 SECONDS (24.3-36.9) H 04/07/18 13:26 Sodium 139 mmol/L (136-145) 04/08/18 05:41 Potassium 4.1 mmol/L (3.5-5.1) 04/08/18 05:41 BUN 9 mg/dL (7-18) 04/08/18 05:41 Creatinine 1.00 mg/dL (0.55-1.3) 04/08/18 05:41 Glucose 102 mg/dL (74-106) 04/08/18 05:41 Magnesium 2.6 mg/dL (1.8-2.4) H 04/08/18 05:41 Total Bilirubin 0.3 mg/dL (0.2-1.0) 04/07/18 13:26 AST 16 U/L (15-37) 04/07/18 13:26 ALT 20 U/L (12-78) 04/07/18 13:26 Alkaline Phosphatase 122 U/L (45-117) H 04/07/18 13:26 Lipase 65 U/L (73-393) L 04/07/18 13:26 Home Medications: Albuterol Sulfate [Albuterol Sulfate 0.083% Neb Soln] 2.5 mg IH PRN PRN Zolpidem Tartrate [Ambien Cr] 12.5 mg PO BEDTIME 03/28/16 Pantoprazole [Protonix Tab*] 40 mg PO DAILYAC #30 tab 03/30/16 Aspirin [Aspirin EC 81 MG] 1 tab PO DAILY 03/25/18 Cetirizine HCl [Zyrtec] 10 mg PO DAILY 03/25/18 Losartan/Hydrochlorothiazide [Losartan-Hctz 50-12.5 mg Tab] 1 each PO DAILY Montelukast Sodium 10 mg PO BEDTIME 03/25/18 Tramadol HCl [Ultram] 50 mg PO Q6H PRN #30 tablet 03/30/18 Budesonide/Formoterol Fumarate [Symbicort 160-4.5 Mcg Inhaler] 2 puff IH BID #1 hfa.aer.ad 04/08/18 traMADol HCL [Ultram*] 50 mg PO TID PRN #20 tab 04/08/18 New Medications: Budesonide/Formoterol Fumarate [Symbicort 160-4.5 Mcg Inhaler] 2 puff IH BID #1 hfa.aer.ad traMADol HCL [Ultram*] 50 mg PO TID PRN #20 tab PRN Reason: Pain Mild Patient Discharge Instructions: 1. Patient will need to follow up the PCP in 1 week to follow up this hospitalization. 2. Patient presented with shortness of breath. Patient found to have left moderate pleural effusion with atelectasis. Patient recently hospitalized for splenic fracture due to fall. CT scan revealed fluid collection around spleen likely liquefying hematoma. CT scan revealed stability. Patient evaluated by surgery and pulmonology. Pulmonology recommends no intervention. No need for further surgical intervention as well. Recommendation is to continue with incentive spirometer at discharge. Pain control is required. Patient may continue with tramadol 50 mg 1 pill 3 times a day as needed for pain. Recommendation to recheck chest x- ray in 2-4 weeks to monitor resolution. Recommendation to follow up with surgery next Thursday to follow up this hospitalization. Recommendation to follow up with pulmonology in 2-4 weeks to monitor her progress. Patient will need to limit activities. No heavy physical activities. 3. Patient with COPD. Patient has not been using her medication regularly. At discharge she will continue with Symbicort 2 puffs twice daily. Will discontinue Spiriva since she is not using this on a regular basis. Patient may continue with Pro air 2 puffs 3 times a day as needed for shortness of breath. Patient may follow up with pulmonology to further address. 4. Patient with hypertension. Patient will continue with her medication-losartan/hydrochlorothiazide 50/12.5 mg daily. Patient may also continue with aspirin 81 mg daily. Recommendation is to maintain blood pressures less 150/80. Further adjustment can be done by her PCP. 5. Patient with GERD. Patient continue with her medication-Protonix 40 mg daily. 6. Patient with insomnia. Patient will continue with her medication-Ambien CR 12.5 mg at night as needed. 7. Patient with allergic rhinitis. Patient will continue with Zyrtec 10 mg daily and Singulair 10 mg daily. 8. Patient with obesity. BMI 35. Lifestyle modification education provided. Diet: AHA Activity: Fall precautions Time spent managing pt's care (in minutes): 55
[2018-04-08 12:44] VITALS: BP 139/80; TEMP 97.6
--- NOTE | 2018-04-08 13:12 | P.CNS ---
Date of Consult: 04/07/18 This is a post dated note, the patient was seen yesterday in emergency room. PC: This 67-year-old female returned to the emergency room complaining of left upper quadrant abdominal pain HPC: This patient was recently in the hospital after sustaining a fall. Her injuries consisted of a ruptured spleen. It was a grade 3 with capsule intact. 2 days she noted that she is having increasing pain and discomfort, similar to that she experienced after her initial fall. She says her pain has intensified and the character seems to be different than what it was over the last few days. She also states that she does not feel good. PMH: Hypertension, diabetes, morbid obesity, recent splenic injury as noted PSHx: SOC: Allergic to codeine, and Motrin SYS REVIEW: States that she has been doing well at home, has been up ambulating , uses her incentive spirometer occasionally. Still not much of an appetite. Has been having bowel movements. O/E the patient looks uncomfortable at the moment. Vital signs are stable HEENT: Not jaundice Chest: Air entry equal bilaterally ABD: Soft minimal left upper quadrant tender and LOCO: Intact DATA: CT scan demonstrates improvement since her initial injury. She has developed a left-sided pleural effusion IMPRESSION: This patient presented back to the emergency room with a change in the quality of her pain and discomfort. She has a known splenic injury and has been treated conservatively. PLAN: The patient will be admitted at this time to address her pain issues. We will also seek consultation with the hospitalist regarding her medical management and pulmonology to see if this effusion needs to be tapped. She understands and is content with this.
== END 2018-04-08 16:01 | disposition home or self-care (01) ==
LOC: ER 12:30 → ERHOLD 16:06 → 2ND 17:52
PROVIDERS: ADMIT Family Medicine; ATTEND Family Medicine
DX: J90 Pleural effusion, not elsewhere classified (principal); J98.11 Atelectasis; J44.9 Chronic obstructive pulmonary disease, unspecified; I10 Essential (primary) hypertension; K21.9 Gastro-esophageal reflux disease without esophagitis; G47.00 Insomnia, unspecified; J30.9 Allergic rhinitis, unspecified; E66.9 Obesity, unspecified; Z68.35 Body mass index [BMI] 35.0-35.9, adult
CPT/HCPCS: 36415; 71045; 71046; 71260; 74177; 80048; 80076; 81003; 83690; 83735; 85025; 85610; 85730; 86850; 86900; 86901; 93005; 94640; 96374; 96375; 99285; G0378; J2175; J2405; J7605; Q9967

== ENCOUNTER 2025-01-16 19:45 | Emergency (ER) | payer OTHER ==
--- OUTSIDE RECORDS SUMMARY | 2025-01-16 19:50 | XMS REPORT | Continuity of Care Document ---
Author Name Unknown Address [address] [place] [address] [facility] [place] Address [address] [place] [address] Care Team Providers Care Embedded Developer Name Role Phone Saurabh ARGUETA, Noni Oconnordinora Primary Care Physic hans Guillermo Wiley Attending Clinician Unavailable DARRON MORGAN Attending Clinician Unavailable Darron Massey Attending Clinician [phone] IMELDA COPE Attending Clinician UnavailImelda Trinidad MD Attending Clinician [phone] Doctor Unassigned, [place] Attending Clinician U navailable Lab, [facility] Attending Clinician Unavailable Nurse, [facility] Attending Clinician Un available 2, [facility] Attending Clinician Unavailable Cristina Herrera MD Attending Clinician [phone] CRISTINA HERRERA Attending Clinician Unavailable JOSE MCKEON Attending Clinician Unavailable Nurse, [facility] Attending Clinician Unava ilable Provider, [facility] Attending Clinician Un available Jade Purvis Attending Clinician + [phone] CRISTINA HERRERA Admitting Clinician Unavailable Payers Payer Name Policy Type Policy Number Effective Date Expirati on Date Source [facility] AARP MCR Advantage PPO [id number] 2024 00:00:00 [facility] HUMANA MEDICARE 53 [id number] 2020 00:00:00 [facility] UHC-AARP MCR Complete (HMO) [id number] [facility] WELLMED/AARP MCARE ADV CHOICE PPO [id number] 2022 00:00:00 HUMANA CHOICE [id number] 2020 00:00:00 HUMANA MEDICARE C1 [id number] Comm on [facility] HUMANA MEDICARE C1 [id number] Comm on [facility] WELLCARE [place] PLUS CLASSIC/VALUE [id number] 2020 00:00:00 Problems Condition Name Condition Details Condition Category Status Onset Date Resolution Date Last Treatment Date Treating Clinician Comments Source Left hand pain Left hand pain Disease Active 05-08 00:00: 00 [facility] Right knee pain Right knee pain Disease Active 2014-04 00:00: 00 [facility] Right knee pain Right knee pain Disease Active 2014-04 00:00: 00 [facility] [id number] Hypercalce ashley Problem [facility] CKD (chronic kidney disease), symptom management only, stage 3 (moderate) CKD (chronic kidney disease), symptom management only, stage 3 (moderate) Problem [facility] [id number] Body mass index [BMI] 35.0-35.9, adult Problem [facility] [id number] COPD with asthma Problem [facility] [id number] Benign essential HTN Problem [facility] [id number] Non-season al allergic rhinitis, unspecifie d trigger Problem [facility] [id number] GERD without esophagiti s Problem [facility] [id number] Type 2 diabetes mellitus with hyperglyce ashley, without long-term current use of insulin Problem [facility] [id number] Mixed hyperlipid emia Problem [facility] [id number] Primary insomnia Problem [facility] [id number] Morbid (severe) obesity due to excess calories Problem [facility] Allergies, Adverse Reactions, Alerts Allergy Name Allergy Type Status Severity Reaction(s) Onset Date Inactive Date Treating Clinician Comments Source Mushroom Propensi ty to adverse reaction s Active Swelling 2014-04 00:00: 00 [facility] CODEINE DRUG INGREDI Active Rash 2014-04 00:00: 00 [facility] MUSHROOM DRUG INGREDI Active ITCHING 2014-04 00:00: 00 [facility] Mushroom Mushroom Active Unknown Commo n [facility] Codeine Codeine Active hives [facility] Social History Social Habit Start Date Stop Date Quantity Comments Source History of Tobacco Use [facility] Sex Assigned At [facility] Exposure to SARS-CoV-2 (event) 2022-04-13 00:00:00 2022-04-23 12:58:00 Not sure [facility] Alcohol intake 2022-04-23 00:00:00 2022-04-23 00:00:00 0 /d [facility] Tobacco use and exposure 2022-01-02 00:00:00 2022-01-02 00:00:00 Smokeless tobacco non-user [facility] Smoking Status Start Date Stop Date Source Never Smoker [facility] Medications Ordered Medication Name Filled Medication Name Start Date Stop Date Current Medication? Ordering Clinician Indication Dosage Frequency Signature (SIG) Comments Components Source Zolpidem Tartrate ER 12.5 MG Zolpidem Tartrate ER 12.5 MG 8-10 00:00: 00 No 1{table t_at_be dtime_a s_neede d} QD Zolpidem Tartrate ER 12.5 MG Vitamin E Vitamin E 3-11 00:00: 00 No 10{ml_a s_neede d} TID Vitamin E Ipratropium -Albuterol 0.5-2.5 (3) MG/3ML Ipratropium -Albuterol 0.5-2.5 (3) MG/3ML 9-25 00:00: 00 No 3{ml_as _needed } QID Ipratropiu m-Albutero l 0.5-2.5 (3) MG/3ML Mupirocin 2 % Mupirocin 2 % 10-12 00:00: 00 No 1{appli cation} BID Mupirocin 2 % traMADoL 50 mg tablet 2021-04 00:00: 00 Yes [id number] 50mg Take 1 tablet by mouth every 4 (four) hours as needed for Pain (scale 7-10). Indication s: acute pain [facility] clindamycin 150 mg capsule 2021-04 00:00: 00 04-19 05:59 :00 No [id number] 05 300mg Take 2 capsules by mouth 4 (four) times daily for 10 days. [facility] traMADoL 50 mg tablet 2021-04 00:00: 00 Yes [id number] 50mg Take 1 tablet by mouth every 4 (four) hours as needed for Pain (scale 7-10). Indication s: acute pain [facility] aspirin (ASPIRIN LOW DOSE) 81 mg EC tablet 06-04 15:46: 34 Yes 81mg Take 81 mg by mouth daily. [facility] OMEPRAZOLE ORAL 06-04 15:46: 34 Yes Take by mouth. [facility] diclofenac 75 mg EC tablet 2018-04 00:00: 00 Yes [id number] 75mg Take 1 tablet by mouth 2 (two) times daily with meals. [facility] methylPREDN ISolone (MEDROL, GLENNA,) 4 mg tablets 01-19 00:00: 00 Yes 84mg Take 21 tablets by mouth SEE-INSTRU CTIONS. follow package directions [facility] azithromyci n (ZITHROMAX Z-LGENNA) 250 mg tablet 05-08 00:00: 00 Yes 250mg Take 1 tablet by mouth SEE-INSTRU CTIONS. Take 500 mg day 1, then 250 mg days 2 to 5. [facility] SPIRIVA RESPIMAT 2.5 mcg/actuati on Mist 05-05 00:00: 00 Yes [facility] SYMBICORT 160-4.5 mcg/actuati on inhaler 2015-04 00:00: 00 Yes [facility] zolpidem (AMBIEN CR) 12.5 mg CR tablet 2014-04 00:00: 00 Yes [facility] ZyrTEC Allergy 10 MG ZyrTEC Allergy 10 MG No 1{table t} QD ZyrTEC Allergy 10 MG Pantoprazol e Sodium 40 MG Pantoprazol e Sodium 40 MG No 1{table t} QD Pantoprazo le Sodium 40 MG Montelukast Sodium 10 MG Montelukast Sodium 10 MG No 1{table t} QD Montelukas t Sodium 10 MG Losartan Potassium-H CTZ 50-12.5 MG Losartan Potassium-H CTZ 50-12.5 MG No 1{table t} QD Losartan Potassium- HCTZ 50-12.5 MG Sucralfate 1 GM Sucralfate 1 GM No BID Sucralfate 1 GM Albuterol Sulfate HFA 108 (90 Base) MCG/ACT Albuterol Sulfate HFA 108 (90 Base) MCG/ACT No 1{puff_ as_need ed} 6xD Albuterol Sulfate HFA 108 (90 Base) MCG/ACT Aspirin 81 MG Aspirin 81 MG No 1{table t} QD Aspirin 81 MG Immunizations Ordered Immunization Name Filled Immunization Name Date Status Comments Source Moderna COVID-19 Vaccine (Low Dose Booster) Moderna COVID-19 Vaccine (Low Dose Booster) 2021-04-17 10:53:00 [facility] Moderna COVID-19 Vaccine (Low Dose Booster) Moderna COVID-19 Vaccine (Low Dose Booster) 2021-04-17 10:53:00 Completed [facility] Moderna COVID-19 Vaccine (Low Dose Booster) Moderna COVID-19 Vaccine (Low Dose Booster) 2021-04-17 10:53:00 [facility] Fluad (IIV) - SDS - 0.5mL Fluad (IIV) - SDS - 0.5mL 2021-02-14 09:21:00 Completed [facility] FluAD FluAD 2021-02-14 09:21:00 Completed [facility] FluAD FluAD 2021-02-14 09:21:00 Completed [facility] SARS-COV-2 COVID-19 MODERNA 12+ YRS VACCINE 2020-08-22 00:00:00 Completed [facility] SARS-COV-2 COVID-19 MODERNA 12+ YRS VACCINE 2020-08-22 00:00:00 Completed [facility] SARS-COV-2 COVID-19 MODERNA 12+ YRS VACCINE 2020-08-22 00:00:00 Completed [facility] SARS-COV-2 COVID-19 MODERNA 12+ YRS VACCINE 2020-08-22 00:00:00 Completed [facility] SARS-COV-2 COVID-19 MODERNA 12+ YRS VACCINE 2020-08-22 00:00:00 Completed [facility] SARS-COV-2 COVID-19 MODERNA 12+ YRS VACCINE 2020-08-22 00:00:00 Completed [facility] SARS-COV-2 COVID-19 MODERNA 12+ YRS VACCINE 2020-08-22 00:00:00 Completed [facility] SARS-COV-2 COVID-19 MODERNA 12+ YRS VACCINE 2020-08-22 00:00:00 Completed [facility] SARS-COV-2 COVID-19 MODERNA 12+ YRS VACCINE 2020-08-22 00:00:00 Completed [facility] SARS-COV-2 COVID-19 MODERNA 12+ YRS VACCINE 2020-08-22 00:00:00 Completed [facility] SARS-COV-2 COVID-19 MODERNA 12+ YRS VACCINE 2020-08-22 00:00:00 Completed [facility] SARS-COV-2 COVID-19 MODERNA 12+ YRS VACCINE 2020-08-22 00:00:00 Completed [facility] SARS-COV-2 COVID-19 MODERNA 12+ YRS VACCINE 2020-08-22 00:00:00 Completed [facility] SARS-COV-2 COVID-19 MODERNA 12+ YRS VACCINE 2020-08-22 00:00:00 Completed [facility] SARS-COV-2 COVID-19 MODERNA 12+ YRS VACCINE 2020-08-22 00:00:00 Completed [facility] SARS-COV-2 COVID-19 MODERNA 12+ YRS VACCINE 2020-08-22 00:00:00 Completed [facility] SARS-COV-2 COVID-19 MODERNA 12+ YRS VACCINE 2020-08-22 00:00:00 Completed [facility] SARS-COV-2 COVID-19 MODERNA 12+ YRS VACCINE 2020-08-22 00:00:00 Completed [facility] SARS-COV-2 COVID-19 MODERNA 12+ YRS VACCINE 2020-08-22 00:00:00 Completed [facility] SARS-COV-2 COVID-19 MODERNA 12+ YRS VACCINE 2020-08-22 00:00:00 Completed [facility] SARS-COV-2 COVID-19 MODERNA 12+ YRS VACCINE 2020-08-22 00:00:00 Completed [facility] SARS-COV-2 COVID-19 MODERNA 12+ YRS VACCINE 2020-08-22 00:00:00 Completed [facility] SARS-COV-2 COVID-19 MODERNA 12+ YRS VACCINE 2020-08-22 00:00:00 Completed [facility] SARS-COV-2 COVID-19 MODERNA 12+ YRS VACCINE 2020-08-22 00:00:00 Completed [facility] SARS-COV-2 COVID-19 MODERNA 12+ YRS VACCINE 2020-07-22 00:00:00 Completed [facility] SARS-COV-2 COVID-19 MODERNA 12+ YRS VACCINE 2020-07-22 00:00:00 Completed [facility] SARS-COV-2 COVID-19 MODERNA 12+ YRS VACCINE 2020-07-22 00:00:00 Completed [facility] SARS-COV-2 COVID-19 MODERNA 12+ YRS VACCINE 2020-07-22 00:00:00 Completed [facility] SARS-COV-2 COVID-19 MODERNA 12+ YRS VACCINE 2020-07-22 00:00:00 Completed [facility] SARS-COV-2 COVID-19 MODERNA 12+ YRS VACCINE 2020-07-22 00:00:00 Completed [facility] SARS-COV-2 COVID-19 MODERNA 12+ YRS VACCINE 2020-07-22 00:00:00 Completed [facility] SARS-COV-2 COVID-19 MODERNA 12+ YRS VACCINE 2020-07-22 00:00:00 Completed [facility] SARS-COV-2 COVID-19 MODERNA 12+ YRS VACCINE 2020-07-22 00:00:00 Completed [facility] SARS-COV-2 COVID-19 MODERNA 12+ YRS VACCINE 2020-07-22 00:00:00 Completed [facility] SARS-COV-2 COVID-19 MODERNA 12+ YRS VACCINE 2020-07-22 00:00:00 Completed [facility] SARS-COV-2 COVID-19 MODERNA 12+ YRS VACCINE 2020-07-22 00:00:00 Completed [facility] SARS-COV-2 COVID-19 MODERNA 12+ YRS VACCINE 2020-07-22 00:00:00 Completed [facility] SARS-COV-2 COVID-19 MODERNA 12+ YRS VACCINE 2020-07-22 00:00:00 Completed [facility] SARS-COV-2 COVID-19 MODERNA 12+ YRS VACCINE 2020-07-22 00:00:00 Completed [facility] SARS-COV-2 COVID-19 MODERNA 12+ YRS VACCINE 2020-07-22 00:00:00 Completed [facility] SARS-COV-2 COVID-19 MODERNA 12+ YRS VACCINE 2020-07-22 00:00:00 Completed [facility] SARS-COV-2 COVID-19 MODERNA 12+ YRS VACCINE 2020-07-22 00:00:00 Completed [facility] SARS-COV-2 COVID-19 MODERNA 12+ YRS VACCINE 2020-07-22 00:00:00 Completed [facility] SARS-COV-2 COVID-19 MODERNA 12+ YRS VACCINE 2020-07-22 00:00:00 Completed [facility] SARS-COV-2 COVID-19 MODERNA 12+ YRS VACCINE 2020-07-22 00:00:00 Completed [facility] SARS-COV-2 COVID-19 MODERNA 12+ YRS VACCINE 2020-07-22 00:00:00 Completed [facility] SARS-COV-2 COVID-19 MODERNA 12+ YRS VACCINE 2020-07-22 00:00:00 Completed [facility] SARS-COV-2 COVID-19 MODERNA 12+ YRS VACCINE 2020-07-22 00:00:00 Completed [facility] FluAD Quad SD FluAD Quad SD Unknown Completed [facility] Moderna COVID-19 Vaccine (Low Dose Booster) Moderna COVID-19 Vaccine (Low Dose Booster) Unknown Completed [facility] FluAD FluAD Unknown Completed [facility] FluAD Quad SD FluAD Quad SD Unknown Completed [facility] Moderna COVID-19 Vaccine (Low Dose Booster) Moderna COVID-19 Vaccine (Low Dose Booster) Unknown Completed [facility] FluAD FluAD Unknown Completed [facility] FluAD Quad SD FluAD Quad SD Unknown Completed [facility] Moderna COVID-19 Vaccine (Low Dose Booster) Moderna COVID-19 Vaccine (Low Dose Booster) Unknown Completed [facility] FluAD FluAD Unknown Completed [facility] FluAD Quad SD FluAD Quad SD Unknown Completed [facility] Moderna COVID-19 Vaccine (Low Dose Booster) Moderna COVID-19 Vaccine (Low Dose Booster) Unknown Completed [facility] FluAD FluAD Unknown Completed [facility] Fluad (aIIV4) - SDS - 0.5mL Fluad (aIIV4) - SDS - 0.5mL Unknown Completed [facility] Moderna COVID-19 Vaccine (Low Dose Booster) Moderna COVID-19 Vaccine (Low Dose Booster) Unknown Completed [facility] FluAD FluAD Unknown Completed [facility] Fluad (aIIV4) - SDS - 0.5mL Fluad (aIIV4) - SDS - 0.5mL Unknown Completed [facility] Moderna COVID-19 Vaccine (Low Dose Booster) Moderna COVID-19 Vaccine (Low Dose Booster) Unknown Completed [facility] FluAD FluAD Unknown Completed [facility] Fluad (aIIV4) - SDS - 0.5mL Fluad (aIIV4) - SDS - 0.5mL Unknown Completed [facility] Moderna COVID-19 Vaccine (Low Dose Booster) Moderna COVID-19 Vaccine (Low Dose Booster) Unknown Completed [facility] FluAD FluAD Unknown Completed [facility] Fluad (aIIV4) - SDS - 0.5mL Fluad (aIIV4) - SDS - 0.5mL Unknown Completed [facility] Moderna COVID-19 Vaccine (Low Dose Booster) Moderna COVID-19 Vaccine (Low Dose Booster) Unknown Completed [facility] FluAD FluAD Unknown Completed [facility] Fluad (aIIV4) - SDS - 0.5mL Fluad (aIIV4) - SDS - 0.5mL Unknown Completed [facility] MODERNA COVID-19 VACCINE (LOW DOSE BOOSTER) MODERNA COVID-19 VACCINE (LOW DOSE BOOSTER) Unknown Completed [facility] FluAD FluAD Unknown Completed [facility] Fluad (aIIV4) - SDS - 0.5mL Fluad (aIIV4) - SDS - 0.5mL Unknown [facility] (LOW DOSE BOOSTER) MODERNA COVID-19 VACCINE (LOW DOSE BOOSTER) Unknown Completed [facility] FluAD FluAD Unknown Completed [facility] Vital Signs Vital Name Observation Time Observation Value Comments S ource height 2024-11-18 08:30:00 65 [in_i] Commo n [facility] weight 2024-11-18 08:30:00 220.8 [lb_av] Co mmon [facility] temperature 2024-11-18 08:30:00 97.2 [degF] Com mon [facility] bmi 2024-11-18 08:30:00 36.74 kg/m2 Comm on [facility] oximetry 2024-11-18 08:30:00 98 % Commo n [facility] respiratory rate 2024-11-18 08:30:00 17 /min Common [facility] blood pressure systolic 2024-11-18 08:30:00 138 mm[Hg[facility] blood pressure diastolic 2024-11-18 08:30:00 78 mm[Hg] [facility] height 2024-08-24 11:15:00 65 [in_i] Commo n [facility] weight 2024-08-24 11:15:00 217 [lb_av] Comm on [facility] temperature 2024-08-24 11:15:00 97.2 [degF] Com mon [facility] bmi 2024-08-24 11:15:00 36.11 kg/m2 Comm on [facility] oximetry 2024-08-24 11:15:00 98 % Commo n [facility] respiratory rate 2024-08-24 11:15:00 17 /min Common [facility] blood pressure systolic 2024-08-24 11:15:00 138 mm[Hg] [facility] blood pressure diastolic 2024-08-24 11:15:00 84 mm[Hg] [facility] height 2024-07-05 13:00:00 65 [in_i] Commo n [facility] weight 2024-07-05 13:00:00 211.6 [lb_av] Co mmon [facility] bmi 2024-07-05 13:00:00 35.21 kg/m2 Comm on [facility] blood pressure systolic 2024-07-05 13:00:00 139 mm[Hg] Common [facility] blood pressure diastolic 2024-07-05 13:00:00 89 mm[Hg] [facility] height 2024-05-24 08:15:00 65 [in_i] Commo n [facility] weight 2024-05-24 08:15:00 211.6 [lb_av] Co mmon [facility] temperature 2024-05-24 08:15:00 97.5 [degF] Com [facility] bmi 2024-05-24 08:15:00 35.21 kg/m2 Comm on [facility] oximetry 2024-05-24 08:15:00 98 % Commo n [facility] respiratory rate 2024-05-24 08:15:00 17 /min Common [facility] blood pressure systolic 2024-05-24 08:15:00 138 mm[Hg] Common [facility] blood pressure diastolic 2024-05-24 08:15:00 76 mm[Hg] Common [facility] height 2024-05-24 09:00:00 65 [in_i] Commo n [facility] weight 2024-05-24 09:00:00 211.6 [lb_av] Co mmon [facility] temperature 2024-05-24 09:00:00 97.5 [degF] Com [facility] bmi 2024-05-24 09:00:00 35.21 kg/m2 Comm on [facility] oximetry 2024-05-24 09:00:00 98 % Commo n [facility] blood pressure systolic 2024-05-24 09:00:00 138 mm[Hg] [facility] blood pressure diastolic 2024-05-24 09:00:00 76 mm[Hg] Common [facility] height 2024-02-09 10:15:00 65 [in_i] Commo n [facility] weight 2024-02-09 10:15:00 207 [lb_av] Comm on [facility] temperature 2024-02-09 10:15:00 97.9 [degF] Com [facility] bmi 2024-02-09 10:15:00 34.44 kg/m2 Comm on [facility] oximetry 2024-02-09 10:15:00 98 % Commo n [facility] blood pressure systolic 2024-02-09 10:15:00 134 mm[Hg] Common [facility] blood pressure diastolic 2024-02-09 10:15:00 74 mm[Hg] [facility] height 2024-02-09 10:15:00 65 [in_i] Commo n [facility] weight 2024-02-09 10:15:00 207 [lb_av] Comm on [facility] temperature 2024-02-09 10:15:00 97.9 [degF] Com [facility] bmi 2024-02-09 10:15:00 34.44 kg/m2 Comm on [facility] oximetry 2024-02-09 10:15:00 98 % Commo n [facility] blood pressure systolic 2024-02-09 10:15:00 134 mm[Hg] Common [facility] blood pressure diastolic 2024-02-09 10:15:00 74 mm[Hg] [facility] height 2024-01-20 12:00:00 65 [in_i] Commo n [facility] weight 2024-01-20 12:00:00 207 [lb_av] Comm on [facility] temperature 2024-01-20 12:00:00 97.6 [degF] Com [facility] bmi 2024-01-20 12:00:00 34.44 kg/m2 Comm on [facility] blood pressure systolic 2024-01-20 12:00:00 133 mm[Hg] [facility] blood pressure diastolic 2024-01-20 12:00:00 80 mm[Hg] Common [facility] height 2023-10-27 13:40:00 65 [in_i] Commo n [facility] weight 2023-10-27 13:40:00 209 [lb_av] Comm on [facility] temperature 2023-10-27 13:40:00 97.3 [degF] Com mon [facility] bmi 2023-10-27 13:40:00 34.78 kg/m2 Comm on [facility] oximetry 2023-10-27 13:40:00 98 % Commo n [facility] blood pressure systolic 2023-10-27 13:40:00 132 mm[Hg] [facility] blood pressure diastolic 2023-10-27 13:40:00 78 mm[Hg] Common [facility] height 2023-10-20 08:00:00 65 [in_i] Commo n [facility] weight 2023-10-20 08:00:00 208 [lb_av] Comm on [facility] temperature 2023-10-20 08:00:00 97.4 [degF] Com mon [facility] bmi 2023-10-20 08:00:00 34.61 kg/m2 Comm on [facility] oximetry 2023-10-20 08:00:00 98 % Commo n [facility] respiratory rate 2023-10-20 08:00:00 18 /min Common [facility] blood pressure systolic 2023-10-20 08:00:00 138 mm[Hg] [facility] blood pressure diastolic 2023-10-20 08:00:00 71 mm[Hg] Common [facility] height 2023-10-13 11:30:00 65 [in_i] Commo n [facility] weight 2023-10-13 11:30:00 215 [lb_av] Comm on [facility] bmi 2023-10-13 11:30:00 35.77 kg/m2 Comm on [facility] height 2023-04-28 08:40:00 65 [in_i] Commo n [facility] weight 2023-04-28 08:40:00 216.0 [lb_av] Co [facility] temperature 2023-04-28 08:40:00 97.5 [degF] Com [facility] bmi 2023-04-28 08:40:00 35.94 kg/m2 Comm on [facility] oximetry 2023-04-28 08:40:00 99 % Commo n [facility] respiratory rate 2023-04-28 08:40:00 18 /min Common [facility] blood pressure systolic 2023-04-28 08:40:00 137 mm[Hg] Common [facility] blood pressure diastolic 2023-04-28 08:40:00 77 mm[Hg] Common [facility] height 2023-04-28 09:00:00 65 [in_i] Commo n [facility] weight 2023-04-28 09:00:00 216.0 [lb_av] Co [facility] temperature 2023-04-28 09:00:00 97.5 [degF] Com [facility] bmi 2023-04-28 09:00:00 35.94 kg/m2 Comm on [facility] oximetry 2023-04-28 09:00:00 99 % Commo n [facility] respiratory rate 2023-04-28 09:00:00 18 /min Common [facility] blood pressure systolic 2023-04-28 09:00:00 137 mm[Hg] [facility] blood pressure diastolic 2023-04-28 09:00:00 77 mm[Hg] Common [facility] height 2023-02-03 14:10:00 65 [in_i] Commo n [facility] weight 2023-02-03 14:10:00 216 [lb_av] Comm on [facility] temperature 2023-02-03 14:10:00 97.2 [degF] Com mon [facility] bmi 2023-02-03 14:10:00 35.94 kg/m2 Comm on [facility] oximetry 2023-02-03 14:10:00 98 % Commo n [facility] respiratory rate 2023-02-03 14:10:00 16 /min Common [facility] blood pressure systolic 2023-02-03 14:10:00 134 mm[Hg] [facility] blood pressure diastolic 2023-02-03 14:10:00 70 mm[Hg] [facility] Systolic blood pressure 2022-10-23 13:06:00 144 mm[Hg] [facility] Diastolic blood pressure 2022-10-23 13:06:00 82 mm[Hg] [facility] Heart rate 2022-10-23 13:06:00 80 /min [facility] Body height 2022-10-23 13:06:00 160 cm [facility] Body weight 2022-10-23 13:06:00 98.068 kg [facility] BMI 2022-10-23 13:06:00 38.30 kg/m2 [facility] acute hospital height 2022-10-08 09:30:00 65 [in_i] Commo n [facility] weight 2022-10-08 09:30:00 214.0 [lb_av] Co mmon [facility] temperature 2022-10-08 09:30:00 97.8 [degF] Com mon [facility] bmi 2022-10-08 09:30:00 35.61 kg/m2 Comm on [facility] oximetry 2022-10-08 09:30:00 98 % Commo n [facility] respiratory rate 2022-10-08 09:30:00 18 /min Common [facility] blood pressure systolic 2022-10-08 09:30:00 138 mm[Hg] [facility] blood pressure diastolic 2022-10-08 09:30:00 76 mm[Hg] [facility] height 2022-06-10 09:20:00 65 [in_i] Commo n [facility] weight 2022-06-10 09:20:00 207.3 [lb_av] Co mmon [facility] temperature 2022-06-10 09:20:00 97.0 [degF] Com mon [facility] bmi 2022-06-10 09:20:00 34.49 kg/m2 Comm on [facility] oximetry 2022-06-10 09:20:00 98 % Commo n [facility] respiratory rate 2022-06-10 09:20:00 18 /min [facility] blood pressure systolic 2022-06-10 09:20:00 133 mm[Hg] [facility] blood pressure diastolic 2022-06-10 09:20:00 74 mm[Hg] Common [facility] height 2022-06-10 09:20:00 65 [in_i] Commo n [facility] weight 2022-06-10 09:20:00 207.3 [lb_av] Co mmon [facility] temperature 2022-06-10 09:20:00 97.0 [degF] Com mon [facility] bmi 2022-06-10 09:20:00 34.49 kg/m2 Comm on [facility] oximetry 2022-06-10 09:20:00 98 % Commo n [facility] respiratory rate 2022-06-10 09:20:00 18 /min [facility] blood pressure systolic 2022-06-10 09:20:00 133 mm[Hg] [facility] blood pressure diastolic 2022-06-10 09:20:00 74 mm[Hg] [facility] Body weight 2022-04-23 19:00:00 97.523 kg [facility] BMI 2022-04-23 19:00:00 38.09 kg/m2 [facility] Body height 2022-04-17 19:29:00 160 cm [facility] Body weight 2022-04-17 19:29:00 97.523 kg [facility] BMI 2022-04-17 19:29:00 38.09 kg/m2 [facility] Body height 2022-04-08 21:22:00 160 cm [facility] Body weight 2022-04-08 21:22:00 97.523 kg [facility] BMI 2022-04-08 21:22:00 38.09 kg/m2 [facility] Body height 2022-03-26 19:38:00 160 cm [facility] Body weight 2022-03-26 19:38:00 97.523 kg [facility] BMI 2022-03-26 19:38:00 38.09 kg/m2 [facility] Body height 2022-03-14 16:57:00 160 cm [facility] Body weight 2022-03-14 16:57:00 97.523 kg [facility] BMI 2022-03-14 16:57:00 38.09 kg/m2 [facility] Systolic blood pressure 2022-03-10 20:27:00 163 mm[Hg] [facility] Diastolic blood pressure 2022-03-10 20:27:00 86 mm[Hg] [facility] Heart rate 2022-03-10 20:27:00 81 /min [facility] Body height 2022-03-10 20:27:00 160 cm [facility] Body weight 2022-03-10 20:27:00 97.523 kg [facility] BMI 2022-03-10 20:27:00 38.09 kg/m2 [facility] Oxygen saturation in Arterial blood by Pulse oximetry 2022-03-10 20:27:00 98 /min [facility] height 2022-02-24 08:50:00 65 [in_i] Commo n [facility] weight 2022-02-24 08:50:00 217.0 [lb_av] Co mmon [facility] temperature 2022-02-24 08:50:00 97.6 [degF] Com mon [facility] bmi 2022-02-24 08:50:00 36.11 kg/m2 Comm on [facility] oximetry 2022-02-24 08:50:00 97 % Commo n [facility] respiratory rate 2022-02-24 08:50:00 17 /min [facility] blood pressure systolic 2022-02-24 08:50:00 131 mm[Hg] [facility] blood pressure diastolic 2022-02-24 08:50:00 83 mm[Hg] [facility] Systolic blood pressure 2022-02-04 19:57:00 134 mm[Hg] [facility] Diastolic blood pressure 2022-02-04 19:57:00 81 mm[Hg] [facility] Heart rate 2022-02-04 19:57:00 88 /min [facility] Body height 2022-02-04 19:57:00 160 cm [facility] acute hospital Body weight 2022-02-04 19:57:00 98.113 kg [facility] acute hospital BMI 2022-02-04 19:57:00 38.32 kg/m2 General acute hospital Oxygen saturation in Arterial blood by Pulse oximetry 2022-02-04 19:57:00 97 /min [facility] Systolic blood pressure 2022-01-02 19:06:00 141 mm[Hg] [facility] Diastolic blood pressure 2022-01-02 19:06:00 90 mm[Hg] [facility] Heart rate 2022-01-02 19:06:00 88 /min Unive [facility] Body temperature 2022-01-02 19:05:00 37 Kizzy [facility] Respiratory rate 2022-01-02 19:05:00 20 /min [facility] Body height 2022-01-02 19:05:00 165.1 cm Univ [facility] Body weight 2022-01-02 19:05:00 97.886 kg Univ [facility] BMI 2022-01-02 19:05:00 35.91 kg/m2 General acute hospital Oxygen saturation in Arterial blood by Pulse oximetry 2022-01-02 19:05:00 95 /min [facility] Systolic blood pressure 2022-01-02 19:06:00 141 mm[Hg] [facility] Diastolic blood pressure 2022-01-02 19:06:00 90 mm[Hg] [facility] Heart rate 2022-01-02 19:06:00 88 /min Unive [facility] Body temperature 2022-01-02 19:05:00 37 Kizzy [facility] Respiratory rate 2022-01-02 19:05:00 20 /min [facility] Body height 2022-01-02 19:05:00 165.1 cm Univ [facility] Body weight 2022-01-02 19:05:00 97.886 kg General acute hospital BMI 2022-01-02 19:05:00 35.91 kg/m2 General acute hospital Oxygen saturation in Arterial blood by Pulse oximetry 2022-01-02 19:05:00 95 /min [facility] Systolic blood pressure 2022-01-02 14:34:00 117 mm[Hg] [facility] Diastolic blood pressure 2022-01-02 14:34:00 84 mm[Hg] [facility] Heart rate 2022-01-02 14:34:00 92 /min Unive [facility] Body height 2022-01-02 14:34:00 165.1 cm Univ [facility] Body weight 2022-01-02 14:34:00 98.748 kg General acute hospital BMI 2022-01-02 14:34:00 36.23 kg/m2 General acute hospital Oxygen saturation in Arterial blood by Pulse oximetry 2022-01-02 14:34:00 97 /min [facility] Systolic blood pressure 2022-01-02 14:34:00 117 mm[Hg] [facility] Diastolic blood pressure 2022-01-02 14:34:00 84 mm[Hg] [facility] Heart rate 2022-01-02 14:34:00 92 /[facility]-02 14:34:00 165.1 cm [facility] acute hospital Body weight 2022-01-02 14:34:00 98.748 kg General acute hospital BMI 2022-01-02 14:34:00 36.23 kg/m2 General acute hospital Oxygen saturation in Arterial blood by Pulse oximetry 2022-01-02 14:34:00 97 /min [facility] height 2021-11-20 11:20:00 65 [in_i] Commo n [facility] weight 2021-11-20 11:20:00 214 [lb_av] Comm on [facility] temperature 2021-11-20 11:20:00 98 [degF] Comm on [facility] bmi 2021-11-20 11:20:00 35.61 kg/m2 Comm on [facility] blood pressure systolic 2021-11-20 11:20:00 132 mm[Hg] Common [facility] blood pressure diastolic 2021-11-20 11:20:00 78 mm[Hg] [facility] height 2021-08-20 10:40:00 65 [in_i] Commo n [facility] weight 2021-08-20 10:40:00 214.6 [lb_av] Co mmon [facility] temperature 2021-08-20 10:40:00 97.7 [degF] Com mon [facility] bmi 2021-08-20 10:40:00 35.71 kg/m2 Comm on [facility] oximetry 2021-08-20 10:40:00 97 % Commo n [facility] respiratory rate 2021-08-20 10:40:00 17 /min [facility] blood pressure systolic 2021-08-20 10:40:00 138 mm[Hg] Common [facility] blood pressure diastolic 2021-08-20 10:40:00 88 mm[Hg] Common [facility] height 2021-05-16 09:10:00 65 [in_i] Commo n [facility] weight 2021-05-16 09:10:00 219.1 [lb_av] Co [facility] temperature 2021-05-16 09:10:00 97.5 [degF] Com [facility] bmi 2021-05-16 09:10:00 36.46 kg/m2 Comm on [facility] oximetry 2021-05-16 09:10:00 95 % Commo n [facility] respiratory rate 2021-05-16 09:10:00 17 /min [facility] blood pressure systolic 2021-05-16 09:10:00 132 mm[Hg] Common [facility] blood pressure diastolic 2021-05-16 09:10:00 76 mm[Hg] [facility] height 2021-05-16 08:40:00 65 [in_i] Commo n [facility] weight 2021-05-16 08:40:00 219.1 [lb_av] Co [facility] temperature 2021-05-16 08:40:00 97.5 [degF] Com [facility] bmi 2021-05-16 08:40:00 36.46 kg/m2 Comm on [facility] oximetry 2021-05-16 08:40:00 95 % Commo n [facility] respiratory rate 2021-05-16 08:40:00 17 /min [facility] blood pressure systolic 2021-05-16 08:40:00 132 mm[Hg] [facility] blood pressure diastolic 2021-05-16 08:40:00 76 mm[Hg] [facility] height 2021-02-14 08:50:00 65 [in_i] Commo n [facility] weight 2021-02-14 08:50:00 219.6 [lb_av] Co mmon [facility] temperature 2021-02-14 08:50:00 97.5 [degF] Com mon [facility] bmi 2021-02-14 08:50:00 36.54 kg/m2 Comm on [facility] oximetry 2021-02-14 08:50:00 95 % Commo n [facility] respiratory rate 2021-02-14 08:50:00 17 /min [facility] blood pressure systolic 2021-02-14 08:50:00 134 mm[Hg] [facility] blood pressure diastolic 2021-02-14 08:50:00 65 mm[Hg] [facility] Procedures Procedure Date / Time Performed Performing Clinician Source REFERRAL- REQUEST/RESPONSE 2022-04-23 06:01:00 Doctor Unassigned, [place] [facility] INSURANCE CORRESPONDENCE 2022-01-08 05:01:00 Doc tor Unassigned, [place] [facility] HB ECG ROUTINE & RHYTHM STRIP 2022-01-02 19:12:15 Cristina Herrera [facility] Encounters Start Date/Time End Date/Time Encounter Type Admission Type Attending Clinicians Care Facility Care Department Encounter ID Source 2024-05-24 08:03:00 [id number] 2024-02-08 12:10:00 Outpatient Guillermo Wiley [facility] [id number] [facility] 2024-01-20 11:33:00 Outpatient Wiley, Guillermo [facility] [id number] [facility] 2023-10-26 13:54:00 Outpatient Wiley, Guillermo [facility] [id number] [facility] 2023-10-19 15:44:00 Outpatient Wiley, Guillermo [facility] [id number] [facility] 2023-04-28 08:31:00 Outpatient Wiley, Guillermo [facility] [id number] [facility] 2022-06-09 10:13:00 Outpatient Wiley, Guillermo [facility] [id number] [facility] 2022-02-20 08:44:01 Outpatient Wiley, Guillermo [facility] [id number] [facility] 2021-07-17 10:37:05 Outpatient Wiley, Guillermo [facility] [id number] [facility] 2021-05-22 14:29:00 Outpatient Wiley, Guillermo [facility] [id number] [facility] 2021-05-22 14:27:49 Outpatient Wiley, Guillermo [facility] [id number] [facility] 2021-05-22 13:28:19 Outpatient Wiley, Guillemro [facility] [id number] [facility] 2021-05-22 13:09:46 Outpatient Wiley, Guillermo [facility] [id number] [facility] 2021-05-22 12:46:08 Outpatient Wiley, Guillermo [facility] [id number] [facility] 2024-11-18 00:00:00 2024-11-18 00:00:00 OFFICE VISIT ESTAB PT LEVEL 4 [facility] [id number] [facility] 2024-08-24 00:00:00 2024-08-24 00:00:00 OFFICE VISIT ESTAB PT LEVEL 4 [facility] [id number] [facility] 2024-07-05 00:00:00 2024-07-05 00:00:00 OFFICE VISIT ESTAB PT LEVEL 3 [facility] [id number] [facility] 2024-07-04 00:00:00 2024-07-04 00:00:00 (TEL) [facility] [id number] [facility] 2024-07-01 00:00:00 2024-07-01 00:00:00 (TEL) [facility] [id number] [facility] 2024-05-24 00:00:00 2024-05-24 00:00:00 OFFICE VISIT ESTAB PT LEVEL 4 [facility] [id number] [facility] 2024-05-24 00:00:00 2024-05-24 00:00:00 SUB ANNUAL [facility] VISIT [facility] [id number] [facility] 2024-05-13 00:00:00 2024-05-13 00:00:00 (TEL) [facility] [id number] [facility] 2024-05-03 00:00:00 2024-05-03 00:00:00 (TEL) [facility] [id number] [facility] 2024-02-09 00:00:00 2024-02-09 00:00:00 OFFICE VISIT ESTAB PT LEVEL 4 [facility] [id number] [facility] 2024-02-03 00:00:00 2024-02-03 00:00:00 (TEL) [facility] [id number] [facility] 2024-01-25 00:00:00 2024-01-25 00:00:00 (TEL) [facility] [id number] [facility] 2024-01-20 00:00:00 2024-01-20 00:00:00 (TEL) [facility] [id number] [facility] 2024-01-20 00:00:00 2024-01-20 00:00:00 OFFICE VISIT ESTAB PT LEVEL 3 [facility] [id number] [facility] 2024-01-19 00:00:00 2024-01-19 00:00:00 (TEL) [facility] [id number] [facility] 2024-01-18 00:00:00 2024-01-18 00:00:00 (TEL) [facility] [id number] [facility] 2023-10-27 00:00:00 2023-10-27 00:00:00 OFFICE VISIT ESTAB PT LEVEL 4 [facility] [id number] [facility] 2023-10-20 00:00:00 2023-10-20 00:00:00 OFFICE VISIT ESTAB PT LEVEL 3 [facility] [id number] [facility] 2023-10-13 00:00:00 2023-10-13 00:00:00 (TEL) [facility] [id number] [facility] 2023-10-13 00:00:00 2023-10-13 00:00:00 OFFICE VISIT ESTAB PT LEVEL 3 [facility] [id number] [facility] 2023-07-27 00:00:00 2023-07-27 00:00:00 (TEL) [facility] [id number] [facility] 2023-04-28 00:00:00 2023-04-28 00:00:00 OFFICE VISIT ESTAB PT LEVEL 4 [facility] [id number] [facility] 2023-04-28 00:00:00 2023-04-28 00:00:00 SUB ANNUAL [facility] VISIT ST[facility] [id number] [facility] 2023-02-03 00:00:00 2023-02-03 00:00:00 OFFICE VISIT ESTAB PT LEVEL 4 [facility] [id number] [facility] 2023-01-09 00:00:00 2023-01-09 00:00:00 (TEL) [facility]C [facility] [id number] [facility] 2022-10-23 08:10:00 2022-10-23 23:59:00 Outpatient R DARRON MORGAN [facility] [id number] [facility] 2022-10-23 08:15:00 2022-10-23 08:30:00 Office Visit Darron Morgan [facility] 1.2.840.114 350.1.13.10 4.2.7.2.686 [id number] [facility] 2022-10-23 08:00:00 2022-10-23 08:00:00 Outpatient R IMELDA COPE [facility] [id number] [facility] 2022-10-21 00:00:00 2022-10-21 00:00:00 Telephone Imelda Cope [facility] 1.2.840.114 350.1.13.10 4.2.7.2.686 [id number] [facility] 2022-10-13 00:00:00 2022-10-13 00:00:00 Telephone Imelda Cope [facility] 1.2.840.114 350.1.13.10 4.2.7.2.686 [id number] [facility] 2022-10-08 00:00:00 2022-10-08 00:00:00 OFFICE VISIT ESTAB PT LEVEL 4 [facility] [id number] [facility] 2022-08-13 00:00:00 2022-08-13 00:00:00 (TEL) [facility]C [facility] [id number] [facility] 2022-06-10 00:00:00 2022-06-10 00:00:00 [id number] 2022-06-10 00:00:00 2022-06-10 00:00:00 SUB ANNUAL [facility] [id number] [facility] 2022-04-23 13:15:00 2022-04-23 13:23:56 Outpatient R IMELDA COPE [facility] [id number] [facility] 2022-04-23 13:15:00 2022-04-23 13:23:56 Office Visit Imelda Cope [facility] 1..840.114 350.1.13.10 4.2.7.2.686 [id number] [facility] 2022-04-23 00:00:00 2022-04-23 00:00:00 Orders Only Doctor Unassigned, [place] [facility] 1.840.114 350.1.13.10 4.2.7.2.686 [id number] [facility] 2022-04-17 16:15:00 2022-04-17 16:30:00 Office Visit Cathy [facility] 1..840.114 350.1.13.10 4.2.7.2.686 [id number] [facility] 2022-04-17 16:15:00 2022-04-17 16:15:00 Outpatient R CATHY [facility] [id number] [facility] 2022-04-08 16:00:00 2022-04-08 16:15:00 Ballet Soloist Visit Lab, Geraldo - Elbert Morgan [facility] 1..840.114 350.1.13.10 4.2.7.2.686 [id number] [facility] 2022-04-08 16:00:00 2022-04-08 16:00:00 Outpatient R DARRON MORGAN [facility] [id number] [facility] 2022-04-08 15:15:00 2022-04-08 15:30:00 Office Visit [facility] 1.2.840.114 350.1.13.10 4.2.7.2.686 [id number] [facility] 2022-04-02 00:00:00 2022-04-02 00:00:00 Telephone Imelda Cope [facility] 1.2.840.114 350.1.13.10 4.2.7.2.686 [id number] [facility] 2022-03-26 14:00:00 2022-03-26 14:13:49 Outpatient R IMELDA COPE [facility] [id number] [facility] 2022-03-26 14:00:00 2022-03-26 14:13:49 Office Visit Imelda Cope [facility] [facility] 1.2.840.114 350.1.13.10 4.2.7.2.686 [id number] [facility] 2022-03-17 00:00:00 2022-03-17 00:00:00 Telephone Imelda [facility]ope [facility] 1.2.840.114 350.1.13.10 4.2.7.2.686 [id number] [facility] 2022-03-14 11:00:00 2022-03-14 11:12:46 Outpatient R IMELDA COPE [facility] [id number] [facility] 2022-03-14 11:00:00 2022-03-14 11:12:46 Office Visit Imelda Cope [facility] 1..840.114 350.1.13.10 4.2.7.2.686 [id number] [facility] 2022-03-10 12:45:48 2022-03-10 23:59:00 Outpatient DARRON HATHAWAY [facility] [id number] [facility] 2022-03-10 13:30:00 2022-03-10 15:26:12 Nurse Visit Nurse, [facility] Imelda Cope [facility] 1.840.114 350.1.13.10 4.2.7.2.686 [id number] [facility] 2022-03-10 14:10:00 2022-03-10 14:25:00 Office Visit Imelda Cope [facility] 1..840.114 350.1.13.10 4.2.7.2.686 [id number] [facility] 2022-03-07 00:00:00 2022-03-07 00:00:00 Telephone Imelda Cope [facility] 1..840.114 350.1.13.10 4.2.7.2.686 [id number] [facility] 2022-03-05 08:45:00 2022-03-05 09:00:00 Ballet Soloist Visit 2, Adc Lab Imelda Cope [facility] 1..840.114 350.1.13.10 4.2.7.2.686 [id number] [facility] 2022-03-05 08:45:00 2022-03-05 08:45:00 Outpatient R IMELDA COPE [facility] [id number] [facility] 2022-02-24 00:00:00 2022-02-24 00:00:00 OFFICE VISIT ESTAB [facility] [id number] 2022-02-05 00:00:00 2022-02-05 00:00:00 [facility] 1.84.114 350.1.13.10 4.2.7.2.686 [id number] [facility] 2022-02-04 14:45:00 2022-02-04 15:00:00 Office Visit Cathy [facility] 1.114 350.1.13.10 4.2.7.2.686 [id number] [facility] 2022-02-04 14:45:00 2022-02-04 14:45:00 Outpatient R CATHY [facility] [id number] [facility] 2022-01-30 00:00:00 2022-01-30 00:00:00 Telephone Imelda Cope [facility] 1..114 350.1.13.10 4.2.7.2.686 [id number] [facility] 2022-01-29 00:00:00 2022-01-29 00:00:00 Telephone Imelda Cope [facility] 1.84.114 350.1.13.10 4.2.7.2.686 [id number] [facility] 2022-01-20 00:00:00 2022-01-20 00:00:00 Telephone Cristina Herrera [facility] 1.84.114 350.1.13.10 4.2.7.2.686 [id number] [facility] 2022-01-14 07:50:35 2022-01-14 23:59:00 [id number] 2022-01-14 08:00:00 2022-01-14 08:00:00 Outpatient R JAVIER, [facility] [id number] [facility] 2022-01-08 00:00:00 2022-01-08 00:00:00 Orders Only Doctor Unassigned, [place] [facility] 1..840.114 350.1.13.10 [id number] [facility] [facility] 2022-01-02 14:20:00 2022-01-02 14:25:25 Outpatient R JAVIER, [facility] [id number] [facility] 2022-01-02 14:20:00 2022-01-02 14:25:25 [id number] 2022-01-02 14:20:00 2022-01-02 14:25:25 Office Visit Javier [facility] 1..840.114 350.1.13.10 4.2.7.2.686 [id number] [facility] 2022-01-02 14:20:00 2022-01-02 14:25:25 Outpatient R JAVIER, [facility] [id number] [facility] 2022-01-02 14:20:00 2022-01-02 14:25:25 Office Visit Javier [facility] 1..840.114 350.1.13.10 4.2.7.2.686 [id number] [facility] 2022-01-02 10:00:00 2022-01-02 10:11:27 [facility] 1.2.840.114 350.1.13.10 4.2.7.2.686 [id number] [facility] 2022-01-02 10:00:00 2022-01-02 10:11:27 Outpatient R IMELDA COPE [facility] [id number] [facility] 2022-01-02 10:00:00 2022-01-02 10:11:27 Office Visit Imelda Cope [facility] 1.2.840.114 350.1.13.10 4.2.7.2.686 [id number] [facility] 2021-12-20 00:00:00 2021-12-20 00:00:00 Telephone Imelda Cope [facility] 1.2.840.114 350.1.13.10 4.2.7.2.686 [id number] [facility] 2021-11-20 00:00:00 2021-11-20 00:00:00 OFFICE VISIT ESTAB PT LEVEL 4 STLMLC STLMLC [id number] [facility] 2021-10-04 08:30:00 2021-10-04 08:58:06 [facility] 1.2.840.114 350.1.13.10 4.2.7.2.686 [id number] [facility] 2021-10-04 08:30:00 2021-10-04 08:58:06 Outpatient DARRON HATHAWAY [facility] [id number] [facility] 2021-10-04 08:30:00 2021-10-04 08:30:00 Outpatient DARRON HATHAWAY [facility] [id number] [facility] 2021-09-27 08:30:00 2021-09-27 08:52:52 Outpatient R DARRON MORGAN [facility] [id number] [facility] 2021-09-27 08:30:00 2021-09-27 08:52:52 Office Visit Cathy [facility] DEMETRIUS DI[facility] 1.2.840.114 350.1.13.10 4.2.7.2.686 [id number] [facility] 2021-09-20 08:30:00 2021-09-20 08:54:40 Outpatient R DARRON MORGAN [facility] [id number] [facility] 2021-09-20 08:30:00 2021-09-20 08:45:00 [facility] 1.2.840.114 350.1.13.10 4.2.7.2.686 [id number] [facility] 2021-09-20 08:30:00 2021-09-20 08:30:00 Outpatient R DARRON MORGAN [facility] [id number] [facility] 2021-09-09 00:00:00 2021-09-09 00:00:00 [facility] 1.2.840.114 350.1.13.10 4.2.7.2.686 [id number] [facility] 2021-08-30 00:00:00 2021-08-30 00:00:00 [facility] 1.2.840.114 350.1.13.10 4.2.7.2.686 [id number] [facility] 2021-08-26 15:45:00 2021-08-26 16:00:00 [facility] 1..840.114 350.1.13.10 4.2.7.2.686 [id number] [facility] 2021-08-26 15:45:00 2021-08-26 15:45:00 Outpatient Catrachita MORGAN DARRON [facility] [id number] [facility] 2021-08-26 00:00:00 2021-08-26 00:00:00 Orders Only Doctor Unassigned, [place] [facility] 1.840.114 350.1.13.10 4.2.7.2.686 [id number] [facility] 2021-08-23 11:15:00 2021-08-23 11:15:00 Outpatient Catrachita MORGAN [facility] [id number] [facility] 2021-08-20 00:00:00 2021-08-20 00:00:00 OFFICE VISIT ESTAB PT LEVEL 4 STLMLC STLMLC [id number] [facility] 2021-06-14 09:30:00 2021-06-14 10:42:47 Office Visit [facility] 1..840.114 350.1.13.10 4.2.7.2.686 [id number] [facility] 2021-06-14 09:30:00 2021-06-14 10:42:47 Outpatient DARRON HATHAWAY [facility] [id number] [facility] 2021-06-14 09:30:00 2021-06-14 09:30:00 Outpatient Catrachita MORGAN [facility] [id number] [facility] 2021-06-07 09:45:00 2021-06-07 10:00:00 Office Visit Cathy [facility] 1..840.114 350.1.13.10 4.2.7.2.686 [id number] [facility] 2021-06-07 09:45:00 2021-06-07 09:45:00 Outpatient DARRON HATHAWAY [facility] [id number] [facility] 2021-06-07 00:00:00 2021-06-07 00:00:00 Orders Only Doctor Unassigned, [place] [facility] 1.2.840.114 350.1.13.10 4.2.7.2.686 [id number] [id number] [facility] 2021-05-31 09:30:00 2021-05-31 10:09:12 Outpatient DARRON HATHAWAY [facility] [id number] [facility] 2021-05-31 09:30:00 2021-05-31 10:09:12 Office Visit Darron [facility] 1.2.840.114 350.1.13.10 4.2.7.2.686 [id number] [facility] 2021-05-27 00:00:00 2021-05-27 00:00:00 Telephone Imelda Cope [facility] 1.2.840.114 350.1.13.10 4.2.7.2.686 [id number] [facility] 2021-05-17 11:15:00 2021-05-17 11:15:00 Outpatient DARRON HATHAWAY [facility] [id number] [facility] 2021-05-16 09:00:00 2021-05-16 09:00:00 Outpatient DARRON HATHAWAY [facility] [id number] [facility] 2021-05-16 00:00:00 2021-05-16 00:00:00 OFFICE VISIT ESTAB PT LEVEL 4 STLMLC STLMLC [id number] [facility] 2021-05-16 00:00:00 2021-05-16 00:00:00 SUB ANNUAL [facility] WELLNESS VISIT STLMLC STLMLC [id number] [facility] 2021-05-15 00:00:00 2021-05-15 00:00:00 [facility] 1.2.840.114 350.1.13.10 4.2.7.2.686 [id number] [facility] 2021-05-09 08:00:00 2021-05-09 08:34:19 Outpatient R IMELDA COPE [facility] [id number] [facility] 2021-05-09 08:00:00 2021-05-09 08:34:19 Office Visit Imelda Cope [facility] 1.2.840.114 350.1.13.10 4.2.7.2.686 [id number] [facility] 2021-05-09 00:00:00 2021-05-09 00:00:00 Orders Only Doctor Unassigned, [place] [facility] 1.2.840.114 350.1.13.10 4.2.7.2.686 [id number] [facility] 2021-04-30 00:00:00 2021-04-30 00:00:00 (TEL) STLMLC STLMLC [id number] [facility] 2021-04-17 00:00:00 2021-04-17 00:00:00 (COVID Inj) COVID Injection STLMLC STLMLC [id number] [facility] 2021-02-27 00:00:00 2021-02-27 00:00:00 (TEL) STLMLC STLMLC [id number] [facility] 2021-02-14 00:00:00 2021-02-14 00:00:00 OFFICE VISIT EST PT LEVEL 3 STLMLC STLMLC [id number] [facility] 2020-11-14 00:00:00 2020-11-14 00:00:00 Outpatient STLMLC STLMLC [id number] [facility] 2020-11-14 00:00:00 2020-11-14 00:00:00 Outpatient STLMLC STLMLC [id number] [facility] 2020-10-30 14:37:05 2020-10-30 23:59:00 Hospital Encounter Imelda Cope [facility] [place] 1.2.840.114 350.1.13.10 4.2.7.2.686 [id number] [facility] 2020-10-30 14:29:13 2020-10-30 15:55:47 Office Visit Darron Morgan [facility] [place] 1.2.840.114 350.1.13.10 4.2.7.2.686 [id number] [facility] 2020-10-30 14:30:00 2020-10-30 14:30:00 Outpatient DARRON HATHAWAY [facility] [id number] [facility] 2020-10-25 00:00:00 2020-10-25 00:00:00 Outpatient STLMLC STLMLC [id number] [facility] 2020-08-22 13:10:00 2020-08-22 13:10:00 Outpatient JOSE MOSCOSO [facility] [id number] [facility] 2020-08-22 08:10:00 2020-08-22 08:10:00 Outpatient JOSE MOSCOSO [facility] [id number] [facility] 2020-08-19 17:10:00 2020-08-19 17:10:00 Outpatient [facility] [id number] [facility] 2020-07-24 00:00:00 2020-07-24 00:00:00 Outpatient STLMLC STLMLC [id number] [facility] 2020-07-22 16:30:00 2020-07-22 16:30:00 Outpatient JOSE MOSCOSO [facility] [id number] [facility] 2020-06-26 00:00:00 2020-06-26 00:00:00 Telephone Nurse, [facility]gent [facility] 1.2840.114 350.1.13.10 4.2.7.2.686 [id number] [facility] 2020-06-25 00:00:00 2020-06-25 00:00:00 Telephone Nurse, [facility] 1.2840.114 350.1.13.10 4.2.7.2.686 [id number] [facility] 2020-06-22 17:56:59 2020-06-22 18:53:11 Urgent Care Provider, [facility] Care Jade Licona [facility] Office [address] 1.84.114 350.1.13.10 4.2.7.2.686 [id number] [facility] 2020-06-22 18:00:00 2020-06-22 18:00:00 Outpatient Catrachita [facility] [id number] [facility] 2020-06-04 15:45:00 2020-06-04 15:45:00 Outpatient IMELDA STARK [facility] [id number] [facility] 2020-05-17 13:30:00 2020-05-17 13:30:00 Outpatient IMELDA STARK [facility] [id number] [facility] 2020-05-17 00:00:00 2020-05-17 00:00:00 Orders Only Doctor Unassigned, [place] [facility] 1.84.114 350.1.13.10 4.2.7.2.686 [id number] [facility] 2020-02-02 00:00:00 2020-02-02 00:00:00 Orders Only Doctor Unassigned, [place] [facility] 1.2.840.114 350.1.13.10 4.2.7.2.686 [id number] 2020-02-02 00:00:00 2020-02-02 00:00:00 Orders Only Doctor Unassigned, [place] [facility] 1.2.840.114 350.1.13.10 4.2.7.2.686 [id number] [facility] 2019-07-13 15:40:30 2019-07-13 23:59:00 Outpatient R IMELDA COPE [facility] [id number] [facility] 2019-07-13 15:40:00 2019-07-13 23:59:00 Hospital Encounter Imelda Cope [facility] 1.2.840.114 350.1.13.10 4.2.7.2.686 [id number] [facility] 2019-07-13 15:28:53 2019-07-13 16:17:49 Office Visit [facility] 1.2.840.114 350.1.13.10 4.2.7.2.686 [id number] 2019-07-13 15:28:53 2019-07-13 16:17:49 Office Visit [place] [facility] 1.2.840.114 350.1.13.10 4.2.7.2.686 [id number] [facility] 2019-04-25 00:00:00 2019-04-25 00:00:00 Orders Only Doctor Unassigned, [place] [facility] 1.2.840.114 350.1.13.10 4.2.7.2.686 [id number] [facility] Results Test Description Test Time Test Comments Results Result Co mments Source COMPREHENSIVE METABOLIC [id number] 00:00:00* Test Item Value Reference Range Interpretation Comme nts NUCLEATED RBCS (test code = 69698-7) 0.0 /100 WBC'S See_Comment [Automated message] The system which generated this result transmitted reference range: 0.0 /100 WBC'S. The reference range was not used to interpret this result as normal/abnormal. ABSOLUTE EOSINOPHILS (test code = 07805-6) 0.19 K/UL See_Comment [Automated message] The system which generated this result transmitted reference range: 0.00-0.50 K/UL. The reference range was not used to interpret this result as normal/abnormal. ABSOLUTE LYMPHOCYTES (test code = 87761-6) 1.56 K/UL See_Comment [Automated message] The system which generated this result transmitted reference range: 1.00-4.00 K/UL. The reference range was not used to interpret this result as normal/abnormal. ABSOLUTE MONOCYTES (test code = 95227-9) 0.89 K/UL See_Comment [Automated message] The system which generated this result transmitted reference range: 0.20-1.00 K/UL. The reference range was not used to interpret this result as normal/abnormal. ABSOLUTE NEUTROPHILS (test code = 49916-5) 6.49 K/UL See_Comment [Automated message] The system which generated this result transmitted reference range: 1.50-7.50 K/UL. The reference range was not used to interpret this result as normal/abnormal. BASOPHILS (test code = 12022-6) 0.6 % EOSINOPHILS (test code = 53499-7) 2.1 % HEMATOCRIT (test code = 10550-9) 43.5 % See_Comment [Automated messa ge] The system which generated this result transmitted reference range: 34.0-45.0 %. The reference range was not used to interpret this result as normal/abnormal. HEMOGLOBIN (test code = 718-7) 14.2 G/DL See_Comment [Automated messa ge] The system which generated this result transmitted reference range: 11.5-15.5 G/DL. The reference range was not used to interpret this result as normal/abnormal. LYMPHOCYTES (test code = 02784-4) 16.8 % MCH (test code = 76451-3) 29.6 PG See_Comment [Automated messa ge] The system which generated this result transmitted reference range: 25.0-33.0 PG. The reference range was not used to interpret this result as normal/abnormal. MCHC (test code = 03502-2) 32.6 G/DL See_Comment [Automated messa ge] The system which generated this result transmitted reference range: 31.0-36.0 G/DL. The reference range was not used to interpret this result as normal/abnormal. MCV (test code = 31011-5) 90.6 fL See_Comment [Automated messa ge] The system which generated this result transmitted reference range: 80.0-99.0 fL. The reference range was not used to interpret this result as normal/abnormal. MONOCYTES (test code = 31935-2) 9.6 % NEUTROPHILS (test code = 67239-1) 70.1 % PLATELET COUNT (test code = 02209-8) 440 K/UL See_Comment H [Automated messa ge] The system which generated this result transmitted reference range: 130-400 K/UL. The reference range was not used to interpret this result as normal/abnormal. RBC (test code = 10147-2) 4.80 M/UL See_Comment [Automated messa ge] The system which generated this result transmitted reference range: 3.80-5.40 M/UL. The reference range was not used to interpret this result as normal/abnormal. RDW (test code = 20391-9) 12.6 % See_Comment [Automated messa ge] The system which generated this result transmitted reference range: 11.5-15.0 %. The reference range was not used to interpret this result as normal/abnormal. WBC (test code = 87766-7) 9.3 K/UL See_Comment [Automated messa ge] The system which generated this result transmitted reference range: 3.5-11.0 K/UL. The reference range was not used to interpret this result as normal/abnormal. HEMOGLOBIN A1c (test code = 4548-4) 6.5 % See_Comment H [Automated messa ge] The system which generated this result transmitted reference range: 4.2-5.6 %. The reference range was not used to interpret this result as normal/abnormal. CALC LDL CHOL (test code = 64845-7) 140 MG/DL See_Comment H [Automated messa ge] The system which generated this result transmitted reference range: <100 MG/DL. The reference range was not used to interpret this result as normal/abnormal. CHOLESTEROL (test code = 2093-3) 212 MG/DL See_Comment H [Automated [employer]] The system which generated this result transmitted reference range: <200 MG/DL. The reference range was not used to interpret this result as normal/abnormal. HDL CHOLESTEROL (test code = 2085-9) 52 MG/DL See_Comment [Automated [employer]] The system which generated this result transmitted reference range: >39 MG/DL. The reference range was not used to interpret this result as normal/abnormal. RISK RATIO LDL/HDL (test code = 41519-4) 2.69 RATIO See_Comment [Automated message] The system which generated this result transmitted reference range: <3.22 RATIO. The reference range was not used to interpret this result as normal/abnormal. TRIGLYCERIDES (test code = 2571-8) 96 MG/DL See_Comment [Automated [employer]] The system which generated this result transmitted reference range: <150 MG/DL. The reference range was not used to interpret this result as normal/abnormal. ALBUMIN, URINE, RANDOM (test code = 26123-8) <0.2 MG/DL NOT ESTAB MG/DL CALC ALBUMIN/CREAT, RND (test code = 77093-9) <1 MG/G See_Comment [Automated [employer]] The system which generated this result transmitted reference range: <30 MG/G. The reference range was not used to interpret this result as normal/abnormal. CREATININE, URINE, CONC. (test code = 2161-8) 135.2 MG/DL NOT ESTAB MG/DL ALBUMIN (test code = 1751-7) 3.9 G/DL See_Comment [Automated [employer]] The system which generated this result transmitted reference range: 3.5-5.2 G/DL. The reference range was not used to interpret this result as normal/abnormal. ALKALINE PHOSPHATASE (test code = 6768-6) 104 U/L See_Comment [Automated message] The system which generated this result transmitted reference range: 40-142 U/L. The reference range was not used to interpret this result as normal/abnormal. BILIRUBIN, TOTAL (test code = 1975-2) <0.2 MG/DL See_Comment [Automated messa ge] The system which generated this result transmitted reference range: <=1.2 MG/DL. The reference range was not used to interpret this result as normal/abnormal. BUN (test code = 3094-0) 18 MG/DL See_Comment [Automated messa ge] The system which generated this result transmitted reference range: 8-23 MG/DL. The reference range was not used to interpret this result as normal/abnormal. CALCIUM (test code = 33087-5) 9.0 MG/DL See_Comment [Automated messa ge] The system which generated this result transmitted reference range: 8.5-10.5 MG/DL. The reference range was not used to interpret this result as normal/abnormal. CALC A/G RATIO (test code = 1759-0) 1.6 RATIO See_Comment [Automated messa ge] The system which generated this result transmitted reference range: 1.0-2.6 RATIO. The reference range was not used to interpret this result as normal/abnormal. CALC BUN/CREAT (test code = 3097-3) 17 RATIO See_Comment [Automated messa ge] The system which generated this result transmitted reference range: 6-28 RATIO. The reference range was not used to interpret this result as normal/abnormal. CALC GLOBULIN (test code = 87771-3) 2.5 G/DL See_Comment [Automated messa ge] The system which generated this result transmitted reference range: 1.9-3.7 G/DL. The reference range was not used to interpret this result as normal/abnormal. CARBON DIOXIDE (test code = 1963-8) 25 MEQ/L See_Comment [Automated messa ge] The system which generated this result transmitted reference range: 19-31 MEQ/L. The reference range was not used to interpret this result as normal/abnormal. CHLORIDE (test code = 2075-0) 104 MEQ/L See_Comment [Automated messa ge] The system which generated this result transmitted reference range: 95-107 MEQ/L. The reference range was not used to interpret this result as normal/abnormal. CREATININE (test code = 2160-0) 1.08 MG/DL See_Comment [Automated messa ge] The system which generated this result transmitted reference range: 0.60-1.30 MG/DL. The reference range was not used to interpret this result as normal/abnormal. eGFR (2021 CKD-EPI) (test code = 25351-9) 55 ML/MIN/1.73 See_Comment L [Automated message] The system which generated this result transmitted reference range: >60 ML/MIN/1.73. The reference range was not used to interpret this result as normal/abnormal. GLUCOSE (test code = 1558-6) 104 MG/DL See_Comment H [Automated messa ge] The system which generated this result transmitted reference range: 70-99 MG/DL. The reference range was not used to interpret this result as normal/abnormal. POTASSIUM (test code = 2823-3) 4.5 MEQ/L See_Comment [Automated messa ge] The system which generated this result transmitted reference range: 3.5-5.4 MEQ/L. The reference range was not used to interpret this result as normal/abnormal. PROTEIN, TOTAL (test code = 2885-2) 6.4 G/DL See_Comment [Automated messa ge] The system which generated this result transmitted reference range: 6.1-8.3 G/DL. The reference range was not used to interpret this result as normal/abnormal. AST (test code = 1920-8) 13 U/L See_Comment [Automated messa ge] The system which generated this result transmitted reference range: 9-40 U/L. The reference range was not used to interpret this result as normal/abnormal. ALT (test code = 1742-6) 15 U/L See_Comment [Automated messa ge] The system which generated this result transmitted reference range: 5-40 U/L. The reference range was not used to interpret this result as normal/abnormal. SODIUM (test code = 2951-2) 145 MEQ/L See_Comment [Automated messa ge] The system which generated this result transmitted reference range: 133-146 MEQ/L. The reference range was not used to interpret this result as normal/abnormal. CBC W/AUTO [id number] 00:00:00* Test Item Value Reference Range Interpretation Comme nts NUCLEATED RBCS (test code = 41893-7) 0.0 /100 WBC'S See_Comment [Automated messa ge] The system which generated this result transmitted reference range: 0.0 /100 WBC'S. The reference range was not used to interpret this result as normal/abnormal. ABSOLUTE EOSINOPHILS (test code = 20537-3) 0.54 K/UL See_Comment H [Automated messa ge] The system which generated this result transmitted reference range: 0.00-0.50 K/UL. The reference range was not used to interpret this result as normal/abnormal. ABSOLUTE LYMPHOCYTES (test code = 96055-3) 0.95 K/UL See_Comment L [Automated messa ge] The system which generated this result transmitted reference range: 1.00-4.00 K/UL. The reference range was not used to interpret this result as normal/abnormal. ABSOLUTE MONOCYTES (test code = 97249-4) 0.57 K/UL See_Comment [Automated messa ge] The system which generated this result transmitted reference range: 0.20-1.00 K/UL. The reference range was not used to interpret this result as normal/abnormal. ABSOLUTE NEUTROPHILS (test code = 78902-7) 3.16 K/UL See_Comment [Automated messa ge] The system which generated this result transmitted reference range: 1.50-7.50 K/UL. The reference range was not used to interpret this result as normal/abnormal. BASOPHILS (test code = 53500-6) 1.1 % EOSINOPHILS (test code = 33259-4) 10.2 % HEMATOCRIT (test code = 41432-5) 41.2 % See_Comment [Automated messa ge] The system which generated this result transmitted reference range: 34.0-45.0 %. The reference range was not used to interpret this result as normal/abnormal. HEMOGLOBIN (test code = 718-7) 14.0 G/DL See_Comment [Automated messa ge] The system which generated this result transmitted reference range: 11.5-15.5 G/DL. The reference range was not used to interpret this result as normal/abnormal. LYMPHOCYTES (test code = 15280-6) 17.9 % MCH (test code = 92054-8) 29.9 PG See_Comment [Automated messa ge] The system which generated this result transmitted reference range: 25.0-33.0 PG. The reference range was not used to interpret this result as normal/abnormal. MCHC (test code = 15730-4) 34.0 G/DL See_Comment [Automated messa ge] The system which generated this result transmitted reference range: 31.0-36.0 G/DL. The reference range was not used to interpret this result as normal/abnormal. MCV (test code = 99057-7) 87.8 fL See_Comment [Automated messa ge] The system which generated this result transmitted reference range: 80.0-99.0 fL. The reference range was not used to interpret this result as normal/abnormal. MONOCYTES (test code = 11798-6) 10.7 % NEUTROPHILS (test code = 55982-9) 59.3 % PLATELET COUNT (test code = 90580-2) 256 K/UL See_Comment [Automated messa ge] The system which generated this result transmitted reference range: 130-400 K/UL. The reference range was not used to interpret this result as normal/abnormal. RBC (test code = 41611-1) 4.69 M/UL See_Comment [Automated messa ge] The system which generated this result transmitted reference range: 3.80-5.40 M/UL. The reference range was not used to interpret this result as normal/abnormal. RDW (test code = 28830-2) 12.6 % See_Comment [Automated messa ge] The system which generated this result transmitted reference range: 11.5-15.0 %. The reference range was not used to interpret this result as normal/abnormal. WBC (test code = 79560-0) 5.3 K/UL See_Comment [Automated messa ge] The system which generated this result transmitted reference range: 3.5-11.0 K/UL. The reference range was not used to interpret this result as normal/abnormal. CBC W/AUTO [id number] 00:00:00* Test Item Value Reference Range Interpretation Comme nts NUCLEATED RBCS (test code = 81405-2) 0.0 /100 WBC'S See_Comment [Automated messa ge] The system which generated this result transmitted reference range: 0.0 /100 WBC'S. The reference range was not used to interpret this result as normal/abnormal. ABSOLUTE EOSINOPHILS (test code = 36490-4) 0.32 K/UL See_Comment [Automated messa ge] The system which generated this result transmitted reference range: 0.00-0.50 K/UL. The reference range was not used to interpret this result as normal/abnormal. ABSOLUTE LYMPHOCYTES (test code = 43179-6) 0.99 K/UL See_Comment L [Automated messa ge] The system which generated this result transmitted reference range: 1.00-4.00 K/UL. The reference range was not used to interpret this result as normal/abnormal. ABSOLUTE MONOCYTES (test code = 01573-2) 0.66 K/UL See_Comment [Automated messa ge] The system which generated this result transmitted reference range: 0.20-1.00 K/UL. The reference range was not used to interpret this result as normal/abnormal. ABSOLUTE NEUTROPHILS (test code = 93388-7) 3.69 K/UL See_Comment [Automated messa ge] The system which generated this result transmitted reference range: 1.50-7.50 K/UL. The reference range was not used to interpret this result as normal/abnormal. BASOPHILS (test code = 64339-1) 0.9 % EOSINOPHILS (test code = 59920-6) 5.6 % HEMATOCRIT (test code = 83500-6) 44.0 % See_Comment [Automated messa ge] The system which generated this result transmitted reference range: 34.0-45.0 %. The reference range was not used to interpret this result as normal/abnormal. HEMOGLOBIN (test code = 718-7) 14.4 G/DL See_Comment [Automated messa ge] The system which generated this result transmitted reference range: 11.5-15.5 G/DL. The reference range was not used to interpret this result as normal/abnormal. LYMPHOCYTES (test code = 28777-4) 17.3 % MCH (test code = 82980-5) 29.7 PG See_Comment [Automated messa ge] The system which generated this result transmitted reference range: 25.0-33.0 PG. The reference range was not used to interpret this result as normal/abnormal. MCHC (test code = 63052-1) 32.7 G/DL See_Comment [Automated messa ge] The system which generated this result transmitted reference range: 31.0-36.0 G/DL. The reference range was not used to interpret this result as normal/abnormal. MCV (test code = 85675-8) 90.7 fL See_Comment [Automated messa ge] The system which generated this result transmitted reference range: 80.0-99.0 fL. The reference range was not used to interpret this result as normal/abnormal. MONOCYTES (test code = 30445-5) 11.5 % NEUTROPHILS (test code = 09762-9) 64.5 % PLATELET COUNT (test code = 38968-6) 253 K/UL See_Comment [Automated messa ge] The system which generated this result transmitted reference range: 130-400 K/UL. The reference range was not used to interpret this result as normal/abnormal. RBC (test code = 41314-5) 4.85 M/UL See_Comment [Automated messa ge] The system which generated this result transmitted reference range: 3.80-5.40 M/UL. The reference range was not used to interpret this result as normal/abnormal. RDW (test code = 28700-0) 12.9 % See_Comment [Automated messa ge] The system which generated this result transmitted reference range: 11.5-15.0 %. The reference range was not used to interpret this result as normal/abnormal. WBC (test code = 13804-2) 5.7 K/UL See_Comment [Automated messa ge] The system which generated this result transmitted reference range: 3.5-11.0 K/UL. The reference range was not used to interpret this result as normal/abnormal. CBC W/AUTO [id number] 00:00:00* Test Item Value Reference Range Interpretation Comme nts NUCLEATED RBCS (test code = 26961-6) 0.0 /100 WBC'S See_Comment [Automated messa ge] The system which generated this result transmitted reference range: 0.0 /100 WBC'S. The reference range was not used to interpret this result as normal/abnormal. ABSOLUTE EOSINOPHILS (test code = 94027-8) 0.40 K/UL See_Comment [Automated messa ge] The system which generated this result transmitted reference range: 0.00-0.50 K/UL. The reference range was not used to interpret this result as normal/abnormal. ABSOLUTE LYMPHOCYTES (test code = 53493-2) 0.87 K/UL See_Comment L [Automated messa ge] The system which generated this result transmitted reference range: 1.00-4.00 K/UL. The reference range was not used to interpret this result as normal/abnormal. ABSOLUTE MONOCYTES (test code = 65783-3) 0.57 K/UL See_Comment [Automated messa ge] The system which generated this result transmitted reference range: 0.20-1.00 K/UL. The reference range was not used to interpret this result as normal/abnormal. ABSOLUTE NEUTROPHILS (test code = 83676-0) 3.30 K/UL See_Comment [Automated messa ge] The system which generated this result transmitted reference range: 1.50-7.50 K/UL. The reference range was not used to interpret this result as normal/abnormal. BASOPHILS (test code = 19241-3) 1.1 % EOSINOPHILS (test code = 24507-9) 7.7 % HEMATOCRIT (test code = 07713-7) 41.7 % See_Comment [Automated messa ge] The system which generated this result transmitted reference range: 34.0-45.0 %. The reference range was not used to interpret this result as normal/abnormal. HEMOGLOBIN (test code = 718-7) 14.2 G/DL See_Comment [Automated messa ge] The system which generated this result transmitted reference range: 11.5-15.5 G/DL. The reference range was not used to interpret this result as normal/abnormal. LYMPHOCYTES (test code = 09756-7) 16.7 % MCH (test code = 84367-6) 30.1 PG See_Comment [Automated messa ge] The system which generated this result transmitted reference range: 25.0-33.0 PG. The reference range was not used to interpret this result as normal/abnormal. MCHC (test code = 08836-0) 34.1 G/DL See_Comment [Automated messa ge] The system which generated this result transmitted reference range: 31.0-36.0 G/DL. The reference range was not used to interpret this result as normal/abnormal. MCV (test code = 06078-4) 88.5 fL See_Comment [Automated messa ge] The system which generated this result transmitted reference range: 80.0-99.0 fL. The reference range was not used to interpret this result as normal/abnormal. MONOCYTES (test code = 61825-0) 10.9 % NEUTROPHILS (test code = 62652-8) 63.2 % PLATELET COUNT (test code = 80455-6) 244 K/UL See_Comment [Automated messa ge] The system which generated this result transmitted reference range: 130-400 K/UL. The reference range was not used to interpret this result as normal/abnormal. RBC (test code = 96777-6) 4.71 M/UL See_Comment [Automated messa ge] The system which generated this result transmitted reference range: 3.80-5.40 M/UL. The reference range was not used to interpret this result as normal/abnormal. RDW (test code = 74684-4) 12.9 % See_Comment [Automated messa ge] The system which generated this result transmitted reference range: 11.5-15.0 %. The reference range was not used to interpret this result as normal/abnormal. WBC (test code = 78409-2) 5.2 K/UL See_Comment [Automated messa ge] The system which generated this result transmitted reference range: 3.5-11.0 K/UL. The reference range was not used to interpret this result as normal/abnormal.
[2025-01-16] MEDS ORDERED: LIDOCAINE 1% 20 ML MDV ONE (20:15)
[2025-01-16] MEDS ORDERED: TDAP (DIPHTH,PERTUSS(ACELL),TET VAC) 0.5 ML VIAL IMVAC ONE (20:21)
--- NOTE | 2025-01-16 21:01 | RAD REPORT ---
EXAMINATION: XR Foot Right 3 View CLINICAL INDICATION: Female, 74 years old. [facility] MAIN Pain;Swelling Bed Name: 11 TECHNIQUE: 3 view radiographs of the right foot were obtained. COMPARISON: No prior exam. FINDINGS: Comminuted fracture along the tuft of the big toe distal phalanx with overlying soft tissue swelling. Normal alignment. No evidence of arthropathy or other focal bone lesion. No soft tissue gas. No significant degenerative changes. IMPRESSION: Comminuted fracture along the tuft of the big toe distal phalanx with overlying soft tissue swelling.
--- NOTE | 2025-01-16 21:54 | ER ---
Nurse's Notes [facility] Name: Janay Boateng Age: 74 yrs Sex: Female : 1950 Arrival Date: 01/16/2025 Time: 19:45 Bed 11 Private MD: Diagnosis: Unspecified fracture of right toe(s), initial encounter for closed fracture Presentation: 01/16 19:53 Chief complaint: Patient states: A PIECE OF HEAVY IRON FELL ON THE LEFT GREAT TOE, ha1 LACERATION AND BLEEDING ON THE LEFT GREAT TOE. Coronavirus screen: Client denies travel out of the [place] in the last 14 days. Ebola Screen: No symptoms or risks identified at this time. Initial Sepsis Screen: Does the patient meet any 2 criteria? No. Patient's initial sepsis screen is negative. Does the patient have a suspected source of infection? No. Patient's initial sepsis screen is negative. Risk Assessment: Do you want to hurt yourself or someone else? Patient reports no desire to harm self or others. Onset of symptoms was January 16, 2025. 19:53 Method Of Arrival: Wheelchair ha1 19:53 Acuity: JAYESH 3 ha1 Historical: - Allergies: 19:56 Codeine; ha1 19:56 mushroom; ha1 - Home Meds: 19:56 losartan Oral [Active]; Aspirin Oral [Active]; ha1 - PMHx: 19:56 Asthma; COPD; Hypertension; ha1 - Immunization history:: Adult Immunizations not up to date, Client reports receiving the 1st dose of the Covid vaccine, Last tetanus immunization: > 10 years ago. - Infectious Disease History:: Denies. - Social history:: Smoking status: Patient denies any tobacco usage or history of. Screenin:59 [place] ED Fall Risk Assessment (Adult) History of falling in the last 3 months, kt5 including since admission No falls in past 3 months (0 pts) Confusion or Disorientation No (0 pts) Intoxicated or Sedated No (0 pts) Impaired Gait No (0 pts) Mobility Assist Device Used No (0 pt) Altered Elimination No (0 pt) Score/Fall Risk Level 0 - 2 = Low Risk. Abuse screen: Denies threats or abuse. Nutritional screening: No deficits noted. Tuberculosis screening: No symptoms or risk factors identified. Assessment: 19:59 General: Appears in no apparent distress. uncomfortable, Behavior is calm, cooperative, kt5 appropriate for age. Pain: Complains of pain in right first toe and Right first toenail Pain currently is 5 out of 10 on a pain scale. Neuro: No deficits noted. Michelle Agitation-Sedation Scale (RASS): 0 - Alert and Calm Level of Consciousness is awake, alert, obeys commands, Oriented to person, place, time. Cardiovascular: No deficits noted. Heart tones S1 S2 present Capillary refill < 3 seconds Clubbing of nail beds is absent JVD is absent Pulses are all present. Edema is absent. Respiratory: No deficits noted. Airway is patent Respiratory effort is even, unlabored, Respiratory pattern is regular, symmetrical. GI: No deficits noted. No signs and/or symptoms were reported involving the gastrointestinal system. : No deficits noted. No signs and/or symptoms were reported regarding the genitourinary system. EENT: No deficits noted. No signs and/or symptoms were reported regarding the EENT system. Derm: No deficits noted. No signs and/or symptoms reported regarding the dermatologic system. Skin is intact, is healthy with good turgor, Skin is dry. Musculoskeletal: Circulation, motion, and sensation intact. Capillary refill < 3 seconds, Range of motion: intact in all extremities, Swelling present in right first toe and Right first toenail Reports pain in right first toe and Right first toenail. 20:39 General: tech at bs for pxr. kt5 21:09 Reassessment: Patient appears in no apparent distress at this time. No changes from kt5 previously documented assessment. 21:51 General: dressing in place and walking shoe placed, pt tolerated well. kt5 Vital Signs: 19:53 BP 154 / 76; Pulse 81; Resp 18 S; Temp 98.3; Pulse Ox 98% on R/A; Weight 93.89 kg; ha1 Height 5 ft. 5 in. ; 22:04 BP 142 / 72; Pulse 80; Resp 18; Temp 98.2; Pulse Ox 99% ; Pain 4/10; kt5 19:53 Body Mass Index 34.45 (93.89 kg, 165.1 cm) ha1 22:04 Pain Scale: Adult kt5 ED Course: 19:48 Patient arrived in ED. mr 19:55 Vania Cardenas, RN is Primary Nurse. kt5 19:56 Triage completed. ha1 19:57 [facility] Fajardo [facility]NP-C [facility]. dr5 19:57 Dez Jimenez DO is Attending Physician. dr5 19:59 Bed in low position. Call light in reach. Side rails up X 1. Client placed on kt5 continuous cardiac and pulse oximetry monitoring. NIBP monitoring applied. Door closed. Noise minimized. ice pack applied to right foot. 19:59 Assist provider with nail repair of right great toe Set up for procedure. Performed by kt5 Dez Jimenez DO. 20:04 Arm band placed on right wrist. kt5 20:50 Foot Right 3 View XRAY In Process Unspecified. EDMS 22:05 Provided Education on: follow up and meds. kt5 Administered Medications: 20:22 Drug: Boostrix Tdap IM 0.5 ml IM once; as a single dose Route: IM; Site: right deltoid; kt5 21:09 Follow up: Response: No adverse reaction kt5 22:04 Drug: Cephalexin PO 500 mg PO once Route: PO; kt5 22:07 Follow up: Response: No adverse reaction kt5 Outcome: 21:53 Discharge ordered by MD. dr5 22:05 Discharged to home ambulatory, with friend, kt5 22:05 Condition: stable 22:05 Discharge instructions given to patient, friend, Instructed on discharge instructions, follow up and referral plans. Demonstrated understanding of instructions, follow-up care, medications, Prescriptions given X 2, 22:07 Patient left the ED. kt5 Signatures: Dispatcher [employer] EDOR WagonerMelissa, Reg Reg mr Vicky Peters RN RN ha1 Anthony Fajardo FNP-C HOSTEL MANAGER-Cdr5 Vania Cardenas RN RN kt5 Corrections: (The following items were deleted from the chart) 20:44 19:59 Vaccine Information Statement (VIS) provided today. Questions and/or concerns kt5 addressed. VIS edition date: January 16, 2025 kt5
--- NOTE | 2025-01-16 21:54 | EDPHYS ---
Physician Documentation [facility] Name: Janay Boateng Age: 74 yrs Sex: Female : 1950 Arrival Date: 01/16/2025 Time: 19:45 Bed 11 Private MD: ED Physician Dez Jimenez HPI: 01/17 00:22 This 74 yrs old Female presents to ER via Wheelchair with complaints of Toe dr5 Injury. 00:22 Onset: The symptoms/episode began/occurred acutely. 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 Patient reports mild numbness and tingling to left toe. Patient is able to ambulate with steady gait.. Historical: - Allergies: 01/16 19:56 Codeine; ha1 19:56 mushroom; ha1 - Home Meds: 19:56 losartan Oral [Active]; Aspirin Oral [Active]; ha1 - PMHx: 19:56 Asthma; COPD; Hypertension; ha1 - Immunization history:: Adult Immunizations not up to date, Client reports receiving the 1st dose of the Covid vaccine, Last tetanus immunization: > 10 years ago. - Infectious Disease History:: Denies. - Social history:: Smoking status: Patient denies any tobacco usage or history of. ROS: 01/17 00:22 Constitutional: as per hpi dr5 Exam: 00:22 Constitutional: This is a well developed, well nourished patient who is awake, alert, dr5 and in no acute distress. Head/Face: Normocephalic, atraumatic. Eyes: Pupils equal round and reactive to light, extra-ocular motions intact. Lids and lashes normal. Conjunctiva and sclera are non-icteric and not injected. Cornea within normal limits. Periorbital areas with no swelling, redness, or edema. Neck: Trachea midline, no thyromegaly or masses palpated, and no cervical lymphadenopathy. Supple, full range of motion without nuchal rigidity, or vertebral point tenderness. No Meningismus. Chest/axilla: Normal chest wall appearance and motion. Nontender with no deformity. No lesions are appreciated. Cardiovascular: Regular rate and rhythm with a normal S1 and S2. Normal PMI, no JVD. No pulse deficits. Respiratory: Lungs have equal breath sounds bilaterally, clear to auscultation. No rales, rhonchi or wheezes noted. No increased work of breathing, no retractions or nasal flaring. Back: No spinal tenderness. No costovertebral tenderness. Full range of motion. Skin: Warm, dry with normal turgor. Normal color with no rashes, no lesions, and no evidence of cellulitis. Neuro: Awake and alert, GCS 15, oriented to person, place, time, and situation. Cranial nerves II-XII grossly intact. Motor strength 5/5 in all extremities. Sensory grossly intact. Cerebellar exam normal. Normal gait. 00:22 Musculoskeletal/extremity: Extremities: grossly normal except: noted in the left first toe and Left first toenail: ecchymosis, pain, swelling, tenderness, ROM: no acute changes, intact in all extremities, Circulation is intact in all extremities. Sensation intact. Vital Signs: 01/16 19:53 BP 154 / 76; Pulse 81; Resp 18 S; Temp 98.3; Pulse Ox 98% on R/A; Weight 93.89 kg; ha1 Height 5 ft. 5 in. ; 22:04 BP 142 / 72; Pulse 80; Resp 18; Temp 98.2; Pulse Ox 99% ; Pain 4/10; kt5 19:53 Body Mass Index 34.45 (93.89 kg, 165.1 cm) ha1 22:04 Pain Scale: Adult kt5 Procedures: 01/17 00:22 Splinting: Splint applied to Left first toenail using Postop shoe. applied by nurse. dr5 Examined by me, post splint application: neurovascular intact, 2+ distal pulses palpable, brisk capillary refill noted, Patient tolerated well. MDM: 01/16 19:58 Medical Screening Exam initiated dr5 01/17 00:22 Differential diagnosis: abrasion, contusion, fracture, sprain, strain. Data reviewed: dr5 vital signs, nurses notes, radiologic studies, plain films. Consideration of Admission/Observation Escalation of care including admission/observation considered. Escalation considered patient found to have open fracture. I considered the following discharge prescriptions or medication management in the emergency department I discussed and recommended Over The Counter medications, Medications were administered in the Emergency Department. See MAR. Independent interpretation of the following test(s) in the Emergency Department X-Ray: My interpretation is Independent interpretation of x-ray reveals fracture at distal end of toe.. Historians other than the Patient: Friend: Friend at bedside. Care significantly affected by the following chronic conditions: COPD, hypertension, asthma. Care significantly affected by the following Social Determinants of Health: Poor access to healthcare and/or lack of insurance, Poor access to transportation, Problems related to employment. Counseling: I had a detailed discussion with the patient and/or guardian regarding the historical points, exam findings, and any diagnostic results supporting the discharge/admit diagnosis, the presence of at least one elevated blood pressure reading (>120/80) during this emergency department visit, radiology results, the need for outpatient follow up, for definitive care, a family practitioner, a orthopedic surgeon, to return to the emergency department if symptoms worsen or persist or if there are any questions or concerns that arise at home. Medication response: Lidocaine, Keflex. Response to treatment: the patient's symptoms have resolved after treatment. Special discussion: I discussed with the patient/guardian in detail that at this point there is no indication for admission to the hospital. It is understood, however, that if the symptoms persist or worsen the patient needs to return immediately for re-evaluation. Based on the history and exam findings, there is no indication for further emergent testing or inpatient evaluation. I discussed with the patient/guardian the need to see the orthopedic surgeon for further evaluation of the symptoms. ED course: Tetanus was updated in ER. Steri-Strips applied to end of toenail for support of nail. Gauze and Coban wrapped around toe and patient placed in postop shoe. Fractures of Keflex given in ER. Prescription for Keflex given to patient. Recommended patient follow-up with orthopedics and/or primary care doctor. All questions answered. Strict ER precautions given.. 01/16 20:06 Order name: Foot Right 3 View XRAY; Complete Time: 21:04 dr5 01/16 20:06 Order name: Dressing - Wound; Complete Time: : dr5 01/16 20:06 Order name: Gloves, Sterile; Complete Time: : dr5 01/16 20: Order name: Prolene, Sutures; Complete Time: 20: dr5 01/16 20:06 Order name: Setup Suture Tray; Complete Time: : dr5 Administered Medications: 01/16 20: Drug: Boostrix Tdap IM 0.5 ml IM once; as a single dose Route: IM; Site: right deltoid; kt5 21:09 Follow up: Response: No adverse reaction kt5 22:04 Drug: Cephalexin PO 500 mg PO once Route: PO; kt5 22:07 Follow up: Response: No adverse reaction kt5 Disposition: 01/17 05:29 Co-signature as Attending Physician, Dez BOURNE reviewed the patient's care tt7 provided by the Advanced Practice Provider and agree with the diagnosis and treatment plan. Disposition Summary: 01/16/25 21:53 Discharge Ordered Notes: Location: Home dr5 Condition: Stable dr5 Diagnosis - Unspecified fracture of right toe(s), initial encounter for closed fracture dr5 Followup: dr5 - With: Emergency Department - When: As needed - Reason: Worsening of condition Followup: dr5 - With: Private Physician - When: 1 - 2 days - Reason: Recheck today's complaints, Continuance of care, Re-evaluation by your physician Discharge Instructions: - Discharge Summary Sheet dr5 - Toe Fracture dr5 Forms: - Medication Reconciliation Form dr5 - Antibiotic Education dr5 - Prescription Opioid Use dr5 - Patient Portal Instructions dr5 - Leadership Thank You Letter dr5 Prescriptions: - Cephalexin 500 mg Oral Capsule - take 1 capsule ORAL route every 12 hours for 10 days; 20 capsule; Refills: 0, dr5 Product Selection Permitted - Tramadol 50 mg Oral Tablet - take 1 tablet ORAL route every 8 hours as needed; 12 tablet; Refills: 0, dr5 Product Selection Permitted Signatures: Dispatcher [employer] Vicky Cordon RN RN ha1 Anthony Fajardo, GLUE SPREADING MACHINE OPERATOR-C GLUE SPREADING MACHINE OPERATOR-Cdr5 Vania Cardenas RN RN kt5 Dez Jimenez DO DO tt7
[2025-01-16] MEDS ORDERED: CEPHALEXIN 250 MG CAP ONE (21:56)
[2025-01-16 22:24] VITALS: BP 142/72; TEMP 98.2; O2SAT 99
== END 2025-01-16 22:07 | disposition home or self-care (01) ==
LOC: ER 19:45
DX: S92.421A Displaced fracture of distal phalanx of right great toe, initial encounter for closed fracture (principal); Z23 Encounter for immunization
CPT/HCPCS: 73630; 90715; 96372; 99284; J2003